=== PATIENT | male | born 1940 | race Caucasian/White ===

== ENCOUNTER 2018-01-15 12:03 | Emergency (ER) | payer MEDICARE ==
[2018-01-15 12:40] VITALS: RESP 20; TEMP 98.1
[2018-01-15 13:14] LABS: Basophils % (A) 0 %; Eosinophils # (A) 0.1 k/uL (0-0.7); Eosinophils % (A) 1 %; HGB 14.4 gm/dL (13.0-17.5); Lymphocytes % (A) 14 %; MCH 30.8 pg (25.0-35.0); MCHC 32.8 g/dL (31.0-37.0); MCV 94.1 fL (80.0-100.0); Monocytes # (A) 0.4 k/uL (0-1.0); Monocytes % (A) 5 %; Neutrophils # (A) 5.8 k/uL (1.3-7.7); Neutrophils % (A) 79 %; Platelet Count 254 k/uL (150-450); RBC 4.68 m/uL (4.30-5.90); RDW 13.9 % (11.5-15.5); WBC 7.3 k/uL (3.8-10.6)
[2018-01-15 13:26] LABS: ALT 23 U/L (21-72); AST 19 U/L (17-59); Albumin 4.2 g/dL (3.5-5.0); Alkaline Phosphatase 106 U/L (38-126); Anion Gap 14 mmol/L; Blood Urea Nitrogen 17 mg/dL (9-20); Calcium 9.5 mg/dL (8.4-10.2); Carbon Dioxide 25 mmol/L (22-30); Chloride 101 mmol/L (98-107); Glucose 250 mg/dL (74-99); Potassium 5.1 mmol/L (3.5-5.1); Sodium 140 mmol/L (137-145); Total Bilirubin 0.3 mg/dL (0.2-1.3); Total Protein 7.6 g/dL (6.3-8.2)
[2018-01-15] MEDS ORDERED: DIAZEPAM 2 MG TAB PO STA ×3 (14:05→15:56)
--- NOTE | 2018-01-15 14:10 | ED ---
General Adult HPI - General Chief complaint: Anxiety Stated complaint: Anxiety, Diff Breathing Time Seen by Provider: 01/15/18 13:54 Source: patient Mode of arrival: ambulatory Limitations: no limitations - History of Present Illness Initial comments: 77 year old male presenting with a chief complaint of anxiety. Patient states is a history of getting anxiety secondary to multiple medications. He's been taking Tylenol 3 for pain for the past 2 weeks without any issue. He states this morning at 5:30 to Pill and is secondary At 9:30. He states shortly after that he began to feel very anxious and was able to stop moving and was having shortness of breath. He states this happened with narcotic pain medications in the past. He denies any chest pain. He does state he has been noncompliant with his levothyroxine secondary to diarrhea. States has been 2 weeks since he is taking a thyroid medication is not had his levels checked. Any fevers or chills. Denies any antipsychotic medications or changes to other medication dosages. Eyes any drug use. - Related Data Home Medications Medication Instructions Recorded Confirmed Acetaminophen-Codeine 300-30mg 0.5 tab PO DAILY PRN 07/28/15 01/15/18 [Tylenol w/codeine #3] Glimepiride [Amaryl] 8 mg PO AC-BRKFST 07/28/15 01/15/18 Levothyroxine Sodium [Synthroid] 25 mcg PO DAILY 07/28/15 01/15/18 Lisinopril [Prinivil] 10 mg PO DAILY 07/28/15 01/15/18 Metoprolol Tartrate [Lopressor] 50 mg PO DAILY 07/28/15 01/15/18 Zolpidem [Ambien] 10 mg PO HS PRN 07/28/15 01/15/18 Ergocalciferol [Vitamin D2 50,000 unit PO Q30D 07/29/15 01/15/18 (DRISDOL)] busPIRone HCL 15 mg PO TID PRN 06/06/17 01/15/18 Nitroglycerin Sl Tabs [Nitrostat] 0.4 mg SUBLINGUAL Q5M PRN 01/15/18 01/15/18 Allergies Allergy/AdvReac Type Severity Reaction Status Date / Time famotidine [From Pepcid] Allergy Rapid Verified 01/15/18 13:39 Heart Rate; Dyskinesia Iodinated Contrast- Oral and Allergy Unknown Verified 01/15/18 13:39 IV Dye [Iodinated Contrast Media - IV Dye] Iodine and Iodide Containing Allergy Unknown Verified 01/15/18 13:39 Produc oxycodone HCl [From Percocet] Allergy Unknown Verified 01/15/18 13:39 pravastatin sodium Allergy Unknown Verified 01/15/18 13:39 [From Pravachol] simvastatin [From Zocor] Allergy Unknown Verified 01/15/18 13:39 tramadol HCl [From Ultram] Allergy Unknown Verified 01/15/18 13:39 cefdinir [From Omnicef] AdvReac ANXIETY Verified 01/15/18 13:39 hydrocodone AdvReac AGITATION Verified 01/15/18 13:39 hydrocodone bitartrate AdvReac AGITATION Verified 01/15/18 13:39 [From Vicodin] levofloxacin [From Levaquin] AdvReac Nausea & Verified 01/15/18 13:39 Vomiting & Diarrhea Review of Systems ROS Statement: Those systems with pertinent positive or pertinent negative responses have been documented in the HPI. Review of Systems Constitutional: Denies fever, chills Eyes: Denies change in vision, Denies pain Ears, nose, mouth, throat: Denies headaches, Denies sore throat Cardiovascular: Denies chest pain. Denies palpitations Respiratory: Denies shortness of breath, Denies cough Gastrointestinal: Denies abdominal pain. Denies nausea, vomiting, diarrhea. Genitourinary: Denies hematuria, Denies infections Musculoskeletal: Denies pain, Denies swelling Integumentary: Denies rash Neurological: Denies headache, focal weakness, focal numbness Psychiatric: Admits to anxiety, Denies depression Hematologic/Lymphatic: Denies easy bleeding or bruising ROS Other: All systems not noted in ROS Statement are negative. Past Medical History Past Medical History: Diabetes Mellitus, Hypertension, Myocardial Infarction ([place] ), Thyroid Disorder Last Myocardial Infarction Date:: 1994 History of Any Multi-Drug Resistant Organisms: None Reported Past Surgical History: Coronary Bypass/CABG, Heart Catheterization With Stent Date of Last Stent Placement:: 1994 Past Psychological History: No Psychological Hx Reported Smoking Status: Former smoker Past Alcohol Use History: None Reported Past Drug Use History: None Reported General Exam - General Exam Comments Initial Comments: General: Awake, alert, No acute Distress HENT: Normocephalic. Atraumatic Eyes: PERRL. EOMI. No scleral icterus. No injected conjunctiva Neck: Full ROM Chest/Lungs: Clear to auscultation bilaterally. No wheezing, rhonchi, or rales Cardiac: Regular rate, rhythm. No murmurs or rubs Abdomen/GI: [Soft, nontender, nondistended. No rebound, guarding, or rigidity. Musculoskeletal: Full ROM Skin: Warm, dry, intact Neurologic: A/Ox3, no weakness, no sensory deficit, no abdnormal gait, no coordination deficit. Dyskinesia Limitations: no limitations Course Vital Signs 01/15/18 01/15/18 12:37 15:45 Temperature 98.1 F Pulse Rate 84 74 Respiratory 20 20 Rate Blood Pressure 169/82 154/91 O2 Sat by Pulse 96 95 Oximetry Medical Decision Making - Medical Decision Making 77-year-old male presenting with anxiety after taking Tylenol 3. Initial exam the patient is awake, alert, and in no acute distress. VSS. Patient is exhibiting dyskinesia. It is states this one happened after other narcotic pain medications. EKG shows shows normal sinus rhythm with a right bundle branch block. Somewhere to EKG from 06/09/2017. Patient's laboratory workup is unremarkable. He states his symptoms are improved but he still exhibiting dyskinesia. Patient was offered admission for this but declined at this time. He states he would like help with his primary care physician tomorrow possible. Patient's dyskinesia improved but did not resolve. He still declined admission. No further emergent workup indicated. The patient was given return to ED instructions. They were instructed to follow up with their primary care provider. Stable for discharge at this time. - Lab Data Result diagrams: 01/15/18 13:02 01/15/18 13:02 Lab Results 01/15/18 01/15/18 01/15/18 Range/Units 13:02 13:02 13:12 WBC 7.3 (3.8-10.6) k/uL RBC 4.68 (4.30-5.90) m/uL Hgb 14.4 (13.0-17.5) gm/dL Hct 44.0 (39.0-53.0) % MCV 94.1 (80.0-100.0) fL MCH 30.8 (25.0-35.0) pg MCHC 32.8 (31.0-37.0) g/dL RDW 13.9 (11.5-15.5) % Plt Count 254 (150-450) k/uL Neutrophils % 79 % Lymphocytes % 14 % Monocytes % 5 % Eosinophils % 1 % Basophils % 0 % Neutrophils # 5.8 (1.3-7.7) k/uL Lymphocytes # 1.0 (1.0-4.8) k/uL Monocytes # 0.4 (0-1.0) k/uL Eosinophils # 0.1 (0-0.7) k/uL Basophils # 0.0 (0-0.2) k/uL Sodium 140 (137-145) mmol/L Potassium 5.1 (3.5-5.1) mmol/L Chloride 101 (98-107) mmol/L Carbon Dioxide 25 (22-30) mmol/L Anion Gap 14 mmol/L BUN 17 (9-20) mg/dL Creatinine 0.75 (0.66-1.25) mg/dL Est GFR (CKD-EPI)AfAm >90 (>60 ml/min/1.73 sqM) Est GFR (CKD-EPI)NonAf 89 (>60 ml/min/1.73 sqM) Glucose 250 H (74-99) mg/dL Calcium 9.5 (8.4-10.2) mg/dL Total Bilirubin 0.3 (0.2-1.3) mg/dL AST 19 (17-59) U/L ALT 23 (21-72) U/L Alkaline Phosphatase 106 (38-126) U/L Troponin I (0.000-0.034) ng/mL Total Protein 7.6 (6.3-8.2) g/dL Albumin 4.2 (3.5-5.0) g/dL TSH 4.470 (0.465-4.680) mIU/L Urine Color Urine Appearance (Clear) Urine pH (5.0-8.0) Ur Specific [place] (1.001-1.035) Urine Protein (Negative) Urine Glucose (UA) (Negative) Urine Ketones (Negative) Urine Blood (Negative) Urine Nitrite (Negative) Urine Bilirubin (Negative) Urine Urobilinogen (<2.0) mg/dL Ur Leukocyte Esterase (Negative) Urine Opiates Screen (NotDetected) Ur Oxycodone Screen (NotDetected) Urine Methadone Screen (NotDetected) Ur Propoxyphene Screen (NotDetected) Ur Barbiturates Screen (NotDetected) U Tricyclic Antidepress (NotDetected) Ur Phencyclidine Scrn (NotDetected) Ur Amphetamines Screen (NotDetected) U Methamphetamines Scrn (NotDetected) U Benzodiazepines Scrn (NotDetected) Urine Cocaine Screen (NotDetected) U Marijuana (THC) Screen (NotDetected) 01/15/18 01/15/18 Range/Units 13:12 14:06 WBC (3.8-10.6) k/uL RBC (4.30-5.90) m/uL Hgb (13.0-17.5) gm/dL Hct (39.0-53.0) % MCV (80.0-100.0) fL MCH (25.0-35.0) pg MCHC (31.0-37.0) g/dL RDW (11.5-15.5) % Plt Count (150-450) k/uL Neutrophils % % Lymphocytes % % Monocytes % % Eosinophils % % Basophils % % Neutrophils # (1.3-7.7) k/uL Lymphocytes # (1.0-4.8) k/uL Monocytes # (0-1.0) k/uL Eosinophils # (0-0.7) k/uL Basophils # (0-0.2) k/uL Sodium (137-145) mmol/L Potassium (3.5-5.1) mmol/L Chloride (98-107) mmol/L Carbon Dioxide (22-30) mmol/L Anion Gap mmol/L BUN (9-20) mg/dL Creatinine (0.66-1.25) mg/dL Est GFR (CKD-EPI)AfAm (>60 ml/min/1.73 sqM) Est GFR (CKD-EPI)NonAf (>60 ml/min/1.73 sqM) Glucose (74-99) mg/dL Calcium (8.4-10.2) mg/dL Total Bilirubin (0.2-1.3) mg/dL AST (17-59) U/L ALT (21-72) U/L Alkaline Phosphatase (38-126) U/L Troponin I <0.012 (0.000-0.034) ng/mL Total Protein (6.3-8.2) g/dL Albumin (3.5-5.0) g/dL TSH (0.465-4.680) mIU/L Urine Color Light Yellow Urine Appearance Clear (Clear) Urine pH 5.5 (5.0-8.0) Ur Specific [place] 1.015 (1.001-1.035) Urine Protein Negative (Negative) Urine Glucose (UA) 3+ H (Negative) Urine Ketones Negative (Negative) Urine Blood Negative (Negative) Urine Nitrite Negative (Negative) Urine Bilirubin Negative (Negative) Urine Urobilinogen <2.0 (<2.0) mg/dL Ur Leukocyte Esterase Negative (Negative) Urine Opiates Screen Detected H (NotDetected) Ur Oxycodone Screen Not Detected (NotDetected) Urine Methadone Screen Not Detected (NotDetected) Ur Propoxyphene Screen Not Detected (NotDetected) Ur Barbiturates Screen Not Detected (NotDetected) U Tricyclic Antidepress Not Detected (NotDetected) Ur Phencyclidine Scrn Not Detected (NotDetected) Ur Amphetamines Screen Not Detected (NotDetected) U Methamphetamines Scrn Not Detected (NotDetected) U Benzodiazepines Scrn Not Detected (NotDetected) Urine Cocaine Screen Not Detected (NotDetected) U Marijuana (THC) Screen Not Detected (NotDetected) Disposition Clinical Impression: Dyskinesia Disposition: HOME SELF-CARE Condition: Good Instructions: Generalized Anxiety Disorder (ED), Muscle Spasm (ED) Additional Instructions: Return to the department if he dyskinesia worsens, you beginning of pain, or any other concerning signs. Referrals: Rodri Crespo MD [Primary Care Provider] - 1-2 days
[2018-01-15 14:17] LABS: Appearance,Urine Clear (Clear); Bilirubin,Urine Negative (Negative); Blood,Urine Negative (Negative); Color,Urine Light Yellow; Glucose,Urine (UA) 3+ (Negative); Ketones,Urine Negative (Negative); Leukocyte Esterase,Urine Negative (Negative); Nitrite,Urine Negative (Negative); PH, Urine 5.5 (5.0-8.0); Protein,Urine Negative (Negative); Specific Gravity,Urine 1.015 (1.001-1.035); Urobilinogen,Urine <2.0 mg/dL (<2.0)
[2018-01-15 14:31] LABS: Amphetamine Screen,Urine Not Detected (NotDetected); Barbiturate Screen,Urine Not Detected (NotDetected); Benzodiazepines Screen,Urine Not Detected (NotDetected); Cocaine Screen,Urine Not Detected (NotDetected); Methadone Screen, Urine Not Detected (NotDetected); Opiate Screen,Urine Detected (NotDetected); Oxycodone Screen, Urine Not Detected (NotDetected); Phencyclidine Screen,Urine Not Detected (NotDetected); Tricyclic Antidepressant,Urine Not Detected (NotDetected); Urn Cannabinoid Scrn Not Detected (NotDetected)
--- NOTE | 2018-01-15 14:44 | XR ---
EXAMINATION TYPE: XR chest 2V DATE OF EXAM: 01/15/2018 COMPARISON: 06/06/2017 TECHNIQUE: PA and lateral views submitted. HISTORY: Shortness of breath FINDINGS: The lungs are clear and there is no pneumothorax, pleural effusion, or focal pneumonia. Hyperinflat ion suggests COPD and there is postsurgical changes including epicardial lead. Atherosclerotic change aorta. Arthropathy of the shoulders and diffuse osteopenia with hypertrophic a nd degenerative change of the spine. Chronic rib deformities are noted. IMPRESSION: 1. No acute process. Correlate for COPD.
[2018-01-15 15:50] VITALS: BP 154/91; PULSE 74
== END 2018-01-15 17:34 | disposition home or self-care (01) ==
LOC: EC 12:03
DX: G24.9 Dystonia, unspecified (principal); R06.02 Shortness of breath; E11.9 Type 2 diabetes mellitus without complications; I10 Essential (primary) hypertension; I25.2 Old myocardial infarction; E07.9 Disorder of thyroid, unspecified; F41.9 Anxiety disorder, unspecified; Z87.891 Personal history of nicotine dependence; Z79.84 Long term (current) use of oral hypoglycemic drugs; Z79.899 Other long term (current) drug therapy; Z91.041 Radiographic dye allergy status; Z88.5 Allergy status to narcotic agent; Z88.6 Allergy status to analgesic agent; Z88.1 Allergy status to other antibiotic agents; Z88.8 Allergy status to other drugs, medicaments and biological substances
CPT/HCPCS: 36415; 71046; 80053; 80306; 81003; 84443; 84484; 85025; 93005; 99283

== ENCOUNTER 2018-12-09 00:30 | Inpatient (IN) | payer MEDICARE ==
[2018-12-09] MEDS ORDERED: methylPREDNISolone SOD SUCCI 125 MG/2 ML VIAL IV STA (00:53)
[2018-12-09] MEDS ORDERED: diphenhydrAMINE 50 MG/ML 1 ML VIAL IVP STA (00:53)
[2018-12-09] MEDS ORDERED: SODIUM CHLORIDE 0.9% 500 ML 500 ML IV STA (00:57)
[2018-12-09 01:06] LABS: Basophils % (A) 0 %; Eosinophils # (A) 0.1 k/uL (0-0.7); Eosinophils % (A) 1 %; HGB 14.2 gm/dL (13.0-17.5); Lymphocytes # (A) 0.8 k/uL (1.0-4.8); Lymphocytes % (A) 7 %; MCH 31.8 pg (25.0-35.0); MCHC 31.6 g/dL (31.0-37.0); MCV 100.8 fL (80.0-100.0); Macrocytosis Slight; Mean Platelet Volume 6.4; Monocytes # (A) 0.6 k/uL (0-1.0); Monocytes % (A) 5 %; Neutrophils # (A) 9.4 k/uL (1.3-7.7); Neutrophils % (A) 85 %; Platelet Count 251 k/uL (150-450); RBC 4.46 m/uL (4.30-5.90); RDW 14.1 % (11.5-15.5)
[2018-12-09 01:22] LABS: ALT 27 U/L (21-72); AST 21 U/L (17-59); Albumin 4.2 g/dL (3.5-5.0); Alkaline Phosphatase 97 U/L (38-126); Anion Gap 11 mmol/L; Blood Urea Nitrogen 15 mg/dL (9-20); Calcium 9.5 mg/dL (8.4-10.2); Carbon Dioxide 24 mmol/L (22-30); Chloride 107 mmol/L (98-107); Glucose 343 mg/dL (74-99); Magnesium 1.5 mg/dL (1.6-2.3); Potassium 5.3 mmol/L (3.5-5.1); Sodium 142 mmol/L (137-145); Total Bilirubin 0.6 mg/dL (0.2-1.3); Total Protein 7.4 g/dL (6.3-8.2)
--- NOTE | 2018-12-09 01:26 | XR ---
EXAM: XR Chest, 2 Views CLINICAL HISTORY: ITS.REASON XR Reason: Chest Pain TECHNIQUE: Frontal and lateral views of the chest. COMPARISON: 01/15/18. FINDINGS: Lungs: Bilateral perihilar/infrahilar opacities. Pleural space: Trace pleural effusions not excluded. No pneumothorax. Heart: Mildly enlarged cardiomediastinal silhouette. Mediastinum: See above. Bones/joints: No acute fracture. IMPRESSION: 1. Bilateral perihilar/infrahilar opacities. Correlate clinically for infection or edema. 2. Trace pleural effusions not excluded. 3. Mildly enlarged cardiomediastinal silhouette.
[2018-12-09] MEDS ORDERED: LORazepam 2 MG/ML INJ IV STA (01:27)
[2018-12-09 01:28] LABS: INR 1.1 (<1.2); Partial Thromboplastin Time 23.2 sec (22.0-30.0); Prothrombin Time 11.2 sec (9.0-12.0)
--- NOTE | 2018-12-09 01:52 | ED ---
Chest Pain HPI - General Source: family Mode of arrival: wheelchair Limitations: no limitations <Sheela Burks - Last Filed: 12/09/18 02:27> <Ruchi Cadet - Last Filed: 12/09/18 02:47> - General Chief Complaint: Chest Pain Stated Complaint: chest pain Time Seen by Provider: 12/09/18 00:53 - History of Present Illness Initial Comments: 78-year-old male patient presents to the emergency department today for evaluation of chest pain, shortness of breath, and anxiety. Patient believes symptoms are related to an ALLERGIC reaction from tramadol. Patient took 25 mg of tramadol at 2 PM, 6 PM, and 8 PM. States shortly after the last dose he started becoming very anxious. States he is having pain across his entire chest. States that he was having some shortness of breath when symptoms first started. States he feels very anxious and restless. Denies any pain into his back. States that he is having some sweats with this. Patient states that he has had ALLERGIC reactions to the medication a past and feels very similar. Patient does also have a history of CABG and myocardial infarction. States that he is nauseated but has not vomited. Patient denies any recent rash, fever , chills, abdominal pain, diarrhea, constipation, back pain, numbness, tingling , dizziness, weakness, hematuria, dysuria, urinary urgency, urinary frequency, headache, visual changes, or any other complaints. (Sheela Burks) - Related Data Home Medications Medication Instructions Recorded Confirmed Acetaminophen-Codeine 300-30mg 0.5 tab PO DAILY PRN 07/28/15 12/09/18 [Tylenol w/codeine #3] Glimepiride [Amaryl] 8 mg PO AC-BRKFST 07/28/15 12/09/18 Levothyroxine Sodium [Synthroid] 25 mcg PO DAILY 07/28/15 12/09/18 Lisinopril [Prinivil] 10 mg PO DAILY 07/28/15 12/09/18 Metoprolol Tartrate [Lopressor] 50 mg PO DAILY 07/28/15 12/09/18 Zolpidem [Ambien] 10 mg PO HS PRN 07/28/15 12/09/18 Ergocalciferol [Vitamin D2 50,000 unit PO Q30D 07/29/15 12/09/18 (DRISDOL)] busPIRone HCL 15 mg PO TID PRN 06/06/17 12/09/18 Nitroglycerin Sl Tabs [Nitrostat] 0.4 mg SUBLINGUAL Q5M PRN 01/15/18 12/09/18 Allergies Allergy/AdvReac Type Severity Reaction Status Date / Time famotidine [From Pepcid] Allergy Rapid Verified 12/09/18 00:38 Heart Rate; Dyskinesia Iodinated Contrast- Oral and Allergy Unknown Verified 12/09/18 00:38 IV Dye [Iodinated Contrast Media - IV Dye] Iodine and Iodide Containing Allergy Unknown Verified 12/09/18 00:38 Produc oxycodone HCl [From Percocet] Allergy Unknown Verified 12/09/18 00:38 pravastatin sodium Allergy Unknown Verified 12/09/18 00:38 [From Pravachol] simvastatin [From Zocor] Allergy Unknown Verified 12/09/18 00:38 tramadol HCl [From Ultram] Allergy Unknown Verified 12/09/18 00:38 cefdinir [From Omnicef] AdvReac ANXIETY Verified 12/09/18 00:38 hydrocodone AdvReac AGITATION Verified 12/09/18 00:38 hydrocodone bitartrate AdvReac AGITATION Verified 12/09/18 00:38 [From Vicodin] levofloxacin [From Levaquin] AdvReac Nausea & Verified 12/09/18 00:38 Vomiting & Diarrhea Review of Systems ROS Other: All systems not noted in ROS Statement are negative. <Sheela Burks - Last Filed: 12/09/18 02:27> ROS Other: All systems not noted in ROS Statement are negative. <Ruchi Cadet - Last Filed: 12/09/18 02:47> ROS Statement: Those systems with pertinent positive or pertinent negative responses have been documented in the HPI. EKG Findings - EKG Comments: EKG Findings:: EKG obtained at 0102 shows normal sinus rhythm with a left axis deviation and right bundle branch block. Ventricular rate is 98, AR interval 156, QRS duration 132, QT 374, QTC 477. Did compare to EKG obtained in December 2017, changes appear chronic. <Sheela Burks - Last Filed: 12/09/18 02:27> Past Medical History Past Medical History: Diabetes Mellitus, Hypertension, Myocardial Infarction ([place] ), Thyroid Disorder Last Myocardial Infarction Date:: 1994 History of Any Multi-Drug Resistant Organisms: None Reported Past Surgical History: Coronary Bypass/CABG, Heart Catheterization With Stent Date of Last Stent Placement:: 1994 Past Psychological History: No Psychological Hx Reported Smoking Status: Former smoker Past Alcohol Use History: None Reported Past Drug Use History: None Reported <Sheela Burks M - Last Filed: 12/09/18 02:27> General Exam Limitations: no limitations General appearance: alert, in no apparent distress, other (This is a well- developed, well-nourished adult male patient in mild distress related to pain. Patient is quite anxious. Vital signs upon presentation are temperature 97.8F , pulse 95, respirations 24, blood pressure 152/89, pulse ox 95% on room air.) Eye exam: Present: normal appearance, PERRL, EOMI. Absent: scleral icterus, conjunctival injection, periorbital swelling ENT exam: Present: normal exam, normal oropharynx, mucous membranes moist Respiratory exam: Present: normal lung sounds bilaterally. Absent: respiratory distress, wheezes, rales, rhonchi, stridor Cardiovascular Exam: Present: regular rate, normal rhythm, normal heart sounds. Absent: systolic murmur, diastolic murmur, rubs, gallop, clicks GI/Abdominal exam: Present: soft, normal bowel sounds. Absent: distended, tenderness, guarding, rebound, rigid Neurological exam: Present: alert, oriented X3, CN II-XII intact Psychiatric exam: Present: normal affect, normal mood Skin exam: Present: warm, dry, intact, normal color. Absent: rash <Sheela Burks M - Last Filed: 12/09/18 02:27> Vital Signs 12/09/18 12/09/18 12/09/18 00:35 01:20 02:00 Temperature 97.8 F Pulse Rate 95 91 90 Respiratory 24 22 20 Rate Blood Pressure 152/89 152/92 166/100 O2 Sat by Pulse 95 97 96 Oximetry Chest Pain [facility] <Sheela Burks M - Last Filed: 12/09/18 02:27> <Ruchi Cadet P - Last Filed: 12/09/18 02:47> - [facility] RADIOLOGY: Two-view x-ray of the chest is obtained. Report was reviewed in its entirety. Impression by Dr. Alamo shows bilateral perihilar/infrahilar opacities. Correlate clinically for infection or edema. Trace pleural effusions on excluded. Mildly enlarged cardiomediastinal silhouette. MDM: 78-year-old male patient presented to the emergency department today for complaints of chest pain and shortness of breath as well as anxiety after taking tramadol this evening. Patient states he is ALLERGIC to tramadol and has had similar reaction to this in the past. He was given IV Solu-Medrol and Benadryl which did improve symptoms somewhat. He is also given 0.5 mg of Ativan. He still reports some mild chest discomfort. Labs reviewed and did reveal elevated troponin at 0.046. Chest x-ray showed possible bilateral pleural effusions. Patient does have history of CAD with CABG. A given history , symptoms, lab findings will admit for serial troponins. We'll start heparin. Dr. Crespo is accepting. (Sheela Burks) I personally saw and examined the patient. I reviewed and agree with the mid- level provider findings including all diagnostic interpretations and treatment plans as written. Patient care was discussed with patient's primary care physician Dr. Crespo who accepts the admission with a consult to cardiology. ( Ruchi Cadet) Disposition Decision to Admit Reason: Admit from EC Decision Date: 12/09/18 Decision Time: 02:28 <Sheela Burks - Last Filed: 12/09/18 02:27> <Ruchi Cadet - Last Filed: 12/09/18 02:47> Clinical Impression: Unstable angina, Elevated troponin Disposition: ADMITTED IP TO THIS [facility] Condition: Serious Referrals: Rodri Crespo MD [Primary Care Provider] - 1-2 days
[2018-12-09 01:57] LABS: Creatine Kinase MB 1.7 ng/mL (0.0-2.4)
[2018-12-09 01:59] LABS: Troponin I 0.046 ng/mL (0.000-0.034)
[2018-12-09] MEDS ORDERED: Magnesium Replacement Protocol 1 EACH MISC MISCELLANE PRN (02:02)
[2018-12-09] MEDS: MAGNESIUM SULFATE-D5W PMX 1 GM in DEXTROSE/WATER 1 100ML.BAG IVPB SCH ×2 (02:09→03:05)
[2018-12-09] MEDS ORDERED: NITROGLYCERIN SL TABS 0.4 MG TAB SUBLINGUAL PRN ×3 (02:24→12:49)
[2018-12-09] MEDS ORDERED: HEPARIN SODIUM,PORCINE 5,000 UNIT/ML 1 ML VIAL IV ONE ×2 (02:24→10:10)
[2018-12-09] MEDS ORDERED: ENALAPRILAT 1.25 MG/ML 1 ML VIAL IVP STA (02:27)
[2018-12-09] MEDS: HEPARIN SOD,PORK IN 0.45% NACL 25,000 UNIT in 0.45% NACL 1 250ML.BAG IV SCH ×2 (02:53→04:23)
[2018-12-09 04:07] VITALS: BMI 23.0
[2018-12-09] MEDS: SODIUM CHLORIDE 0.9% 1,000 ML IV SCH ×2 (04:23)
[2018-12-09 05:33] LABS: Glucose,Whole Blood 264 mg/dL (75-99)
[2018-12-09 07:26] LABS: Creatine Kinase MB 19.3 ng/mL (0.0-2.4)
[2018-12-09 07:27] LABS: Troponin I 2.13 ng/mL (0.000-0.034)
--- NOTE | 2018-12-09 08:54 | P.CRDCN ---
History of Present Illness Consult date: 12/09/18 Requesting physician: Rodri Crespo Consult reason: chest pain Chief complaint: Chest pain History of present illness: This is a 78-year-old gentleman with history of coronary artery disease and prior stent placements, he also underwent coronary artery bypass grafting surgery, diabetes, hypertension, hyperlipidemia, hypothyroidism, anxiety. The information was taken from the medical record and from the patient , patient is quite nervous and agitated this morning, it also appears that he may have an element of dementia. According to the patient, he presented to the hospital with symptoms of severe chest pain with associated shortness of breath and anxiety. He states that he had been given tramadol at home and felt that he had an ALLERGIC reaction. He describes his discomfort as pressure across his entire chest with inability to breathe, he was quite diaphoretic. According to the patient, he states that he follows with Dr. Arnie Hoffmann in the office, he actually states that he saw him recently. Upon calling the office, it appears that the patient has not been back to the office since 2009. We are waiting for his to arrive to get some more information. His initial EKG on presentation here showed a normal sinus rhythm with a right bundle branch block pattern and nonspecific ST-T wave changes. Chest x-ray shows bilateral. Hilar and infrahilar [place] cities, trace of pleural effusions. Blood pressure this morning 126/80 with a heart rate of 80. 99% on 2 L of oxygen. White blood cell count 11.0, hemoglobin 14.2, platelet count 251. Sodium 142, potassium 5.3, BUN 15 and creatinine 0.8. Initial troponin on presentation here 0.046, subsequent troponin 2.13. Urine screen positive for opiates. At the time of my examination this morning, he is sitting up in his chair at bedside, quite anxious and agitated. I did explain to the patient that it appears he has had a non-Q-wave TN and may need to undergo cardiac catheterization. At this point in time he is refusing to have that done. Past Medical History Past Medical History: Coronary Artery Disease (CAD), Diabetes Mellitus, Hypertension, Myocardial Infarction (TN), Osteoarthritis (OA), Thyroid Disorder Last Myocardial Infarction Date:: 1994 History of Any Multi-Drug Resistant Organisms: None Reported Past Surgical History: Coronary Bypass/CABG, Heart Catheterization With Stent, Orthopedic Surgery Additional Past Surgical History / Comment(s): Bilateral hip replacement, CABG 25 years ago Past Anesthesia/Blood Transfusion Reactions: No Reported Reaction Date of Last Stent Placement:: 1994 Past Psychological History: No Psychological Hx Reported Smoking Status: Never smoker Past Alcohol Use History: None Reported Additional Past Alcohol Use History / Comment(s): Patient was a smoker one pack per day for 45 years and quit in 1993. No marijuana or illicit drug use. He lives at home with his . There are 2 adult children in the home ages 42 and 50. There is also a cat in the home. Patient denies any extensive travel but does have a second home in [place] and is there on a regular basis. He denies any service. Past Drug Use History: None Reported - Past Family History Mother Additional Family Medical History / Comment(s): Mom from brain cancer. Father History Unknown: Yes Additional Family Medical History / Comment(s): Father after a fall at correction. Medications and Allergies Home Medications Medication Instructions Recorded Confirmed Type Glimepiride [Amaryl] 8 mg PO [id number]-BRKFST 07/28/15 12/09/18 History Levothyroxine Sodium [Synthroid] 25 mcg PO DAILY 07/28/15 12/09/18 History Lisinopril [Prinivil] 10 mg PO DAILY 07/28/15 12/09/18 History Metoprolol Tartrate [Lopressor] 50 mg PO DAILY 07/28/15 12/09/18 History Zolpidem [Ambien] 10 mg PO HS PRN 07/28/15 12/09/18 History Ergocalciferol [Vitamin D2 50,000 unit PO Q30D 07/29/15 12/09/18 History (DRISDOL)] busPIRone HCL 15 mg PO TID PRN 06/06/17 12/09/18 History Nitroglycerin Sl Tabs [Nitrostat] 0.4 mg SUBLINGUAL Q5M PRN 01/15/18 12/09/18 History Ibuprofen [Motrin] 800 mg PO QID 12/09/18 12/09/18 History Allergies Allergy/AdvReac Type Severity Reaction Status Date / Time famotidine [From Pepcid] Allergy Rapid Verified 12/09/18 08:27 Heart Rate; Dyskinesia Iodinated Contrast- Oral and Allergy Unknown Verified 12/09/18 08:27 IV Dye [Iodinated Contrast Media - IV Dye] Iodine and Iodide Containing Allergy Unknown Verified 12/09/18 08:27 Produc oxycodone HCl [From Percocet] Allergy Unknown Verified 12/09/18 08:27 pravastatin sodium Allergy Unknown Verified 12/09/18 08:27 [From Pravachol] simvastatin [From Zocor] Allergy Unknown Verified 12/09/18 08:27 tramadol HCl [From Ultram] Allergy Unknown Verified 12/09/18 08:27 cefdinir [From Omnicef] AdvReac ANXIETY Verified 12/09/18 08:27 hydrocodone AdvReac AGITATION Verified 12/09/18 08:27 hydrocodone bitartrate AdvReac AGITATION Verified 12/09/18 08:27 [From Vicodin] levofloxacin [From Levaquin] AdvReac Nausea & Verified 12/09/18 08:27 Vomiting & Diarrhea Physical Exam Vitals: Vital Signs Temp Pulse Pulse Resp BP BP Pulse Ox 12/09/18 08:00 98.7 F 85 20 126/89 99 12/09/18 04:00 97.5 F L 109 H 18 152/81 94 L 12/09/18 03:00 86 20 150/95 99 12/09/18 02:00 90 20 166/100 96 12/09/18 01:20 91 22 152/92 97 12/09/18 00:35 97.8 F 95 24 152/89 95 Intake and Output 12/08/18 12/09/18 12/09/18 22:59 06:59 14:59 Intake Total 230 Balance 230 Intake: Oral 230 Other: Voiding Method Toilet Urinal # Voids 1 1 Weight 64.8 kg PHYSICAL EXAMINATION: GENERAL: 78-year-old gentleman in no acute distress at the time of my examination, appears very anxious and agitated. HEENT: Head is atraumatic, normocephalic. Pupils equal, round. Sclera anicteric. Conjunctiva are clear. Mucous membranes of the mouth are moist. Neck is supple. There is no elevated jugular venous pressure. No carotid bruit is heard. HEART EXAMINATION: Heart S1 S2 1 systolic murmur is heard. CHEST EXAMINATION: Reveal fine crackles to bilateral bases. ABDOMEN: Soft, nontender. Bowel sounds are heard. No organomegaly noted. EXTREMITIES: 2+ peripheral pulses with no evidence of peripheral edema and no calf tenderness noted. NEUROLOGIC patient is awake, alert and oriented 2 . . Results 12/09/18 00:45 12/09/18 00:45 Cardiac Enzymes 12/09/18 12/09/18 12/09/18 Range/Units 00:45 00:45 06:38 AST 21 (17-59) U/L CK-MB (CK-2) 1.7 19.3 H (0.0-2.4) ng/mL Troponin I 0.046 H* 2.130 H* (0.000-0.034) ng/mL Coagulation 12/09/18 Range/Units 00:45 PT 11.2 (9.0-12.0) sec APTT 23.2 (22.0-30.0) sec CBC 12/09/18 Range/Units 00:45 WBC 11.0 H (3.8-10.6) k/uL RBC 4.46 (4.30-5.90) m/uL Hgb 14.2 (13.0-17.5) gm/dL Hct 45.0 (39.0-53.0) % Plt Count 251 (150-450) k/uL Comprehensive Metabolic Panel 12/09/18 Range/Units 00:45 Sodium 142 (137-145) mmol/L Potassium 5.3 H (3.5-5.1) mmol/L Chloride 107 (98-107) mmol/L Carbon Dioxide 24 (22-30) mmol/L BUN 15 (9-20) mg/dL Creatinine 0.88 (0.66-1.25) mg/dL Glucose 343 H (74-99) mg/dL Calcium 9.5 (8.4-10.2) mg/dL AST 21 (17-59) U/L ALT 27 (21-72) U/L Alkaline Phosphatase 97 (38-126) U/L Total Protein 7.4 (6.3-8.2) g/dL Albumin 4.2 (3.5-5.0) g/dL Current Medications Generic Name Dose Route Start Last Admin Trade Name Freq PRN Reason Stop Dose Admin Aspirin 325 mg 12/10/18 09:00 Aspirin PO DAILY [facility] Atorvastatin Calcium 80 mg 12/09/18 21:00 Lipitor PO HS NICOLAS Heparin Sodium/Sodium Chloride 250 mls @ 7.72 mls/hr 12/09/18 02:30 12/09/18 04:23 25,000 unit/ Sodium Chloride IV Not Given .Q24H NICOLAS Protocol 12 UNITS/KG/HR Sodium Chloride 1,000 mls @ 20 mls/hr 12/09/18 02:30 12/09/18 04:23 Saline 0.9% IV 20 mls/hr .Q24H NICOLAS Administration Miscellaneous Information 1 each 12/09/18 02:02 Magnesium Per Protocol MISCELLANE DAILY PRN Per Protocol Protocol Nitroglycerin 0.4 mg 12/09/18 02:24 Nitrostat SUBLINGUAL Q5M PRN Chest Pain Intake and Output 12/08/18 12/09/18 12/09/18 22:59 06:59 14:59 Intake Total 230 Balance 230 Intake: Oral 230 Other: Voiding Method Toilet Urinal # Voids 1 1 Weight 64.8 kg 12/09/18 00:45 12/09/18 00:45 EKG Interpretations (text) EKG shows a normal sinus rhythm with a right bundle branch block pattern and nonspecific ST-T wave changes. Assessment and Plan Plan: Assessment and plan #1 symptoms of severe midsternal chest discomfort with associated shortness of breath and diaphoresis, troponins 0.046 and 2.1, suggesting acute coronary syndrome. EKG shows a normal sinus rhythm with right bundle branch block pattern and nonspecific ST-T wave changes. #2 hypertension #3 diabetes #4 hyperlipidemia #5 coronary artery disease with prior stent placement and bypass surgery #6 Anxiety Plan We will repeat a morning EKG. Obtain an echocardiogram with Doppler study. Continue aspirin, Lipitor we will add to his medication regime. Continue IV heparin. We will resume the patient's beta osman and PAUL inhibitor. Patient has been advised that he may need to undergo cardiac catheterization. At this point in time he refuses to have any procedures performed. We will wait till his arrives and speak with them again, we will also notify Dr. REAL Hoffmann and further recommendations will be made. DNP note has been reviewed, I agree with a documented findings and plan of care. Patient was seen and examined.
[2018-12-09] MEDS: LISINOPRIL 10 MG TAB PO SCH (09:52)
[2018-12-09] MEDS: METOPROLOL TARTRATE 50 MG TAB PO SCH (09:52)
[2018-12-09] MEDS ORDERED: HEPARIN SODIUM,PORCINE 5,000 UNIT/ML 1 ML VIAL IV PRN (10:13)
[2018-12-09 11:38] LABS: Glucose,Whole Blood 266 mg/dL (75-99)
[2018-12-09] MEDS ORDERED: ASPIRIN 325 MG TAB PO STA (12:18)
[2018-12-09] MEDS ORDERED: ALPRAZolam 0.25 MG TAB PO PRN (12:18)
[2018-12-09] MEDS ORDERED: SODIUM CHLORIDE 0.9% 1,000 ML in EMPTY BAG 1 BAG IV ONE (12:18)
[2018-12-09] MEDS ORDERED: ALPRAZolam 0.5 MG TAB PO PRN (12:18)
[2018-12-09] MEDS ORDERED: ATORVASTATIN 80 MG TAB PO STA (12:18)
[2018-12-09 12:49] LABS: Creatine Kinase MB 44.1 ng/mL (0.0-2.4)
[2018-12-09] MEDS ORDERED: busPIRone HCl 5 MG TAB PO PRN (12:49)
[2018-12-09 12:56] LABS: Troponin I 6.25 ng/mL (0.000-0.034)
--- NOTE | 2018-12-09 14:04 | ECHOF ---
Referral Reason:assess lvf MEASUREMENTS -------- HEIGHT: 167.6 cm WEIGHT: 64.4 kg BP: 126/89 RVIDd: 2.5 cm (< 3.3) IVSd: 1.0 cm (0.6 - 1.1) LVIDd: 4.3 cm (3.9 - 5.3) LVPWd: 1.0 cm (0.6 - 1.1) IVSs: 1.4 cm LVIDs: 3.7 cm LVPWs: 1.1 cm LAESV Index (A-L): 25.24 ml/m Ao Diam: 3.0 cm (2.0 - 3.7) AV Cusp: 1.1 cm (1.5 - 2.6) LA Diam: 3.4 cm (2.7 - 3.8) EPSS: 0.5 cm MV E Norman: 0.92 m/s MV DecT: 205 ms MV A Norman: 0.44 m/s MV E/A Ratio: 2.10 RAP: 15.00 mmHg RVSP: 64.35 mmHg MV EF SLOPE: 141.70 mm/s (70 - 150) MV EXCURSION: 1.72 cm (> 18.000) FINDINGS -------- Sinus rhythm. This was a technically difficult study with suboptimal views. The left ventricular size is normal. There is borderline concentric left ventricular hypertrophy. Overall left ventricular systolic function is severely impaired with, an EF between 25 - 30 %. Nor mal funtion of the mid and basal septum. All other luciano are hypokinetic. The right ventricle is normal in size and function. Normal LA size by volume 22+/-6 ml/m2. The right atrium is normal in size. 3 ml of Lumason was utilized for enhancement of images. There is mild to moderate aortic valve sclerosis. There is no evidence of aortic regurgitation. T here is no evidence of aortic stenosis. The mitral valve leaflets are mildly thickened. Mild mitral annular calcification present. Mild m itral regurgitation is present. [id number] tricuspid regurgitation present. There is moderate pulmonary hypertension. The r ight ventricular systolic pressure, as measured by Doppler, is 64.35mmHg. The pulmonic valve was not well visualized. Possible mural thrombus in left ventricular apex. The aortic root size is normal. The inferior vena cava is dilated with no significant inspiratory collapse which is consistent estima taylor right atrial pressure of >20 mmHg. There is no pericardial effusion. CONCLUSIONS -------- 1. Sinus rhythm. 2. This was a technically difficult study with suboptimal views. 3. The left ventricular size is normal. 4. There is borderline concentric left ventricular hypertrophy. 5. Overall left ventricular systolic function is severely impaired with, an EF between 25 - 30 %. 6. Normal funtion of the mid and basal septum. All other luciano are hypokinetic. 7. Normal LA size by volume 22+/-6 ml/m2. 8. 3 ml of Lumason was utilized for enhancement of images. 9. There is mild to moderate aortic valve sclerosis. 10. The mitral valve leaflets are mildly thickened. 11. Mild mitral annular calcification present. 12. Mild mitral regurgitation is present. 13. [id number] tricuspid regurgitation present. 14. There is moderate pulmonary hypertension. 15. The right ventricular systolic pressure, as measured by Doppler, is 64.35mmHg. 16. The pulmonic valve was not well visualized. 17. Possible mural thrombus in left ventricular apex. 18. The aortic root size is normal. 19. The inferior vena cava is dilated with no significant inspiratory collapse which is consistent es timated right atrial pressure of >20 mmHg. 20. There is no pericardial effusion. FICTION AND NONFICTION AUTHOR: Daniele Em RDCS
[2018-12-09 17:31] LABS: Glucose,Whole Blood 283 mg/dL (75-99)
[2018-12-09] MEDS: INSULIN ASPART (NovoLOG) 100 UNIT/ML VIAL SQ SCH (17:40)
--- NOTE | 2018-12-09 19:57 | HP ---
HISTORY AND PHYSICAL CHIEF COMPLAINT: Chest pain and elevated troponin. HISTORY OF PRESENT ILLNESS: This is another admission for this 78-year-old white male who is extremely noncompliant diabetic and never takes his insulin appropriately. He always is running high blood sugars. He stated that he had an "allergic reaction" to pain medication and then developed chest pain. He stated he was sure it was not his heart, but it felt like "his heart attack." He came to the emergency room, where he did have an elevated troponin. REVIEW OF SYSTEMS: He has had no syncope, neurologic problems, CVAs, TIAs, change in vision or hearing, cough, hemoptysis, sputum production, orthopnea, PND, palpitations, abdominal pain, nausea, vomiting, hematemesis, melena, hematochezia, jaundice, hematuria, frequency, urgency, renal failure, etc. Past medical history, family history, personal and social histories are difficult to obtain because of extremely poor historian and always in denial. He says he is ALLERGIC TO BUSPAR, CEPHALOSPORINS, QUINOLONES, PEPCID, PERCOCET, PRAVASTATIN, ULTRAM, ZOCOR, AND IODINE. Current medications include Motrin 800 q.i.d. p.r.n., Nitrostat p.r.n., levothyroxine, vitamin D, glimepiride, metoprolol, lisinopril, and Ambien. The remainder of his history is unremarkable. He used to smoke but has quit. He does not drink alcohol. PHYSICAL EXAM: Blood pressure 132/80 with a pulse of 84 and regular, respirations of 18, temp is 97.9. In general, he appeared to be slender and somewhat tremulous. He does have choreoathetoid movements of these are old. Head, ears, eyes, nose, mouth, and throat were normal. Neck veins are not distended. Carotids normal. The chest was clear, but there are no rubs. Cardiac exam demonstrated sinus tachycardia with no murmurs or extra sounds. He had a sternotomy scar from his prior CABG. Abdomen is soft, nontender without visceromegaly masses. Bowel sounds are present. Extremities are normal. Neurologically he is intact. IMPRESSION: 1. Chest pain. 2. Elevated troponin. 3. Probable acute myocardial infarction. 4. Uncontrolled diabetes mellitus due to noncompliance. 5. Previous coronary artery disease with CABG. 6. Poorly-controlled diabetes mellitus. PLAN: 1. Bed rest. 2. IV fluids. 3. Serial EKGs and enzymes. 4. Cardiology consult. JB / MARÍA: [id number] /
[2018-12-09] MEDS: ATORVASTATIN 80 MG TAB PO SCH (20:24)
[2018-12-09] MEDS: ZOLPIDEM 10 MG TAB PO PRN (20:24)
[2018-12-09 21:08] LABS: Glucose,Whole Blood 180 mg/dL (75-99)
[2018-12-09] MEDS: INSULIN DETEMIR (LEVEMIR) 100 UNIT/ML SYR SQ SCH (21:20)
[2018-12-09 22:14] LABS: Hemoglobin A1C 9.2 % (4.0-6.0)
[2018-12-10 04:07] LABS: Magnesium 2.1 mg/dL (1.6-2.3)
[2018-12-10] MEDS: METOPROLOL TARTRATE 50 MG TAB PO SCH (06:23)
[2018-12-10] MEDS: LISINOPRIL 10 MG TAB PO SCH (06:23)
[2018-12-10] MEDS: LEVOTHYROXINE 25 MCG TAB PO SCH (06:23)
[2018-12-10 06:27] LABS: Glucose,Whole Blood 96 mg/dL (75-99)
[2018-12-10] MEDS: INSULIN ASPART (NovoLOG) 100 UNIT/ML VIAL SQ SCH ×3 (06:27→18:22)
[2018-12-10] MEDS ORDERED: ASPIRIN 325 MG TAB PO SCH (09:00)
[2018-12-10 11:15] LABS: Glucose,Whole Blood 108 mg/dL (75-99)
[2018-12-10] MEDS ORDERED: LIDOCAINE 1% INJ 10MG/ML (20 ML MDV) ONE (12:12)
[2018-12-10] MEDS ORDERED: SODIUM CHLORIDE 0.9% 500 ML 500 ML IV ONE (12:24)
[2018-12-10] MEDS ORDERED: methylPREDNISolone SOD SUCCI 125 MG/2 ML VIAL IV ONE (12:35)
[2018-12-10] MEDS ORDERED: LIDOCAINE 1% INJ 10MG/ML (20 ML MDV) SQ ONE (12:41)
[2018-12-10] MEDS ORDERED: MIDAZOLAM 2 MG/2 ML VIAL IV ONE (12:42)
[2018-12-10] MEDS ORDERED: diphenhydrAMINE 50 MG/ML 1 ML VIAL IVP ONE (12:45)
[2018-12-10] MEDS ORDERED: IOPAMIDOL-370 100ML BTL INJ ONE ×2 (13:23)
--- NOTE | 2018-12-10 15:03 | PN ---
PROGRESS NOTE CHIEF COMPLAINT: Chest pain. HISTORY OF PRESENT ILLNESS: This gentleman is doing fairly well and he has had no further chest pain. He has agreed to the cardiac cath and he is going today. Sugars have been well controlled. PHYSICAL EXAM: Chest is clear and the cardiac exam is normal. IMPRESSION: 1. Chest pain. 2. Myocardial infarction. 3. Coronary artery disease. 4. Uncontrolled diabetes. PLAN: Cardiac cath today. MMODL / IJN: [id number] /
[2018-12-10 16:34] LABS: Glucose,Whole Blood 172 mg/dL (75-99)
--- NOTE | 2018-12-10 17:54 | P.GSCN ---
<Sol Quezada - Last Filed: 12/10/18 17:25> History of Present Illness Consult date: 12/10/18 Reason for Consult: Severe multivessel coronary artery disease status post CABG, surgical recommendations for redo CABG Requesting physician: Arlen Hoffmann History of present illness: This is a 78-year-old active gentleman who follows on an outpatient basis with Dr. Crespo. He has a previous medical history of coronary artery disease with stenting to the LAD in 1989, stenting to the RCA in 1994 after acute myocardial infarction, and coronary artery bypass graft surgery in September [address] Wetzel with saphenous vein graft to the posterior descending artery and posterolateral branchs of the right coronary artery, hypertension, hyperlipidemia, uncontrolled diabetes, hypothyroidism, previous tobacco dependence, and noncompliance with medication. Apparently he had an episode of substernal chest pain, shortness of breath, and anxiety which he attributed to an ALLERGIC reaction to his pain medication. Accompanying symptoms included nausea and diaphoresis, he denied any other symptoms. When his symptoms didn't subside he presented to [facility] emergency room for evaluation and treatment. Chest x-ray was completed demonstrating perihilar opacities. EKG demonstrated sinus rhythm with bundle branch block and nonspecific STT wave changes. Troponin was elevated and patient was ruled in for non-STEMI. He was admitted for evaluation and treatment, IV heparin was initiated, and patient was recommended to undergo heart catheterization which he initially refused. Transthoracic echocardiogram was completed which demonstrated impaired left ventricular systolic function with an EF 25-30%, mild mitral regurgitation, mild to moderate tricuspid regurgitation with moderate pulmonary hypertension, and possible left ventricular thrombus. The patient did eventually agree to heart catheterization which was completed today and which demonstrated mid RCA stenosis 100%, stenosis in the ramus 90%, mid LAD stenosis 99%, stenosis in the saphenous vein graft to the PDA 60%, and stenosis in the saphenous vein graft to the posterior lateral branch of the RCA 90%. Dr. Dixon from cardiothoracic surgery was consulted for recommendations regarding redo coronary artery bypass graft surgery. Review of Systems Review of systems was completed and was negative except as noted. Of note, review of systems was mostly obtained from the patient's as the patient was initially sleeping, the patient's wished for us not to wake the patient as he had just gotten asleep after previously being very agitated. - Cardiovascular Reports as per HPI, Reports chest pain, Reports shortness of breath - Gastrointestinal Reports nausea - Psychiatric Reports anxiety Past Medical History Past Medical History: Coronary Artery Disease (CAD), Diabetes Mellitus, Hypertension, Myocardial Infarction ([place]), Osteoarthritis (OA), Thyroid Disorder Additional Past Medical History / Comment(s): Medical noncompliance Last Myocardial Infarction Date:: 1994 History of Any Multi-Drug Resistant Organisms: None Reported Past Surgical History: Coronary Bypass/CABG, Heart Catheterization With Stent, Orthopedic Surgery Additional Past Surgical History / Comment(s): Bilateral hip replacement, CABG 25 years ago Past Anesthesia/Blood Transfusion Reactions: No Reported Reaction Date of Last Stent Placement:: 1994 Past Psychological History: No Psychological Hx Reported Smoking Status: Former smoker Past Alcohol Use History: None Reported Additional Past Alcohol Use History / Comment(s): Patient was a smoker one pack per day for 45 years and quit in 1993. No marijuana or illicit drug use. He lives at home with his . There are 2 adult children in the home ages 42 and 50. There is also a cat in the home. Patient denies any extensive travel but does have a second home in [place] and is there on a regular basis. He denies any service. Past Drug Use History: None Reported - Past Family History Mother Additional Family Medical History / Comment(s): Mom from brain cancer. Father History Unknown: Yes Additional Family Medical History / Comment(s): Father after a [facility]. Medications and Allergies Home Medications Medication Instructions Recorded Confirmed Type Glimepiride [Amaryl] 8 mg PO [id number] 07/28/15 12/09/18 History Levothyroxine Sodium [Synthroid] 25 mcg PO DAILY 07/28/15 12/09/18 History Lisinopril [Prinivil] 10 mg PO DAILY 07/28/15 12/09/18 History Metoprolol Tartrate [Lopressor] 50 mg PO DAILY 07/28/15 12/09/18 History Zolpidem [Ambien] 10 mg PO HS PRN 07/28/15 12/09/18 History Ergocalciferol [Vitamin D2 50,000 unit PO Q30D 07/29/15 12/09/18 History (DRISDOL)] busPIRone HCL 15 mg PO TID PRN 06/06/17 12/09/18 History Nitroglycerin Sl Tabs [Nitrostat] 0.4 mg SUBLINGUAL Q5M PRN 01/15/18 12/09/18 History Ibuprofen [Motrin] 800 mg PO QID 12/09/18 12/09/18 History Allergies Allergy/AdvReac Type Severity Reaction Status Date / Time famotidine [From Pepcid] Allergy Rapid Verified 12/09/18 08:27 Heart Rate; Dyskinesia Iodinated Contrast- Oral and Allergy Unknown Verified 12/09/18 08:27 IV Dye [Iodinated Contrast Media - IV Dye] Iodine and Iodide Containing Allergy Unknown Verified 12/09/18 08:27 Produc oxycodone HCl [From Percocet] Allergy Unknown Verified 12/09/18 08:27 pravastatin sodium Allergy Unknown Verified 12/09/18 08:27 [From Pravachol] simvastatin [From Zocor] Allergy Unknown Verified 12/09/18 08:27 tramadol HCl [From Ultram] Allergy Unknown Verified 12/09/18 08:27 cefdinir [From Omnicef] AdvReac ANXIETY Verified 12/09/18 08:27 hydrocodone AdvReac AGITATION Verified 12/09/18 08:27 hydrocodone bitartrate AdvReac AGITATION Verified 12/09/18 08:27 [From Vicodin] levofloxacin [From Levaquin] AdvReac Nausea & Verified 12/09/18 08:27 Vomiting & Diarrhea Surgical - Exam Vital Signs Temp Pulse Resp BP Pulse Ox 97.8 F 95 24 152/89 95 12/09/18 00:35 12/09/18 00:35 12/09/18 00:35 12/09/18 00:35 12/09/18 00:35 - General well developed, well nourished, no distress, no pain - Eyes PERRL, normal ocular movement - ENT no hearing loss - Neck no masses, no bruits, trachea midline - Respiratory Lungs sounds diminished bilaterally. Respirations even, nonlabored. Currently on 2 L nasal cannula with oxygen saturation 94%. No chest wall deformities. - Cardiovascular S1, S2 present. Regular rate and rhythm, sinus rhythm on telemetry. Palpable peripheral pulses bilaterally. No edema present. No calf pain or tenderness noted. Positive varicosities noted. - Abdomen Abdomen: soft, non tender, bowel sounds - Genitourinary Deferred - Rectum Deferred - Integumentary Well-healed anterior chest wall open heart scar no rash, no growths - Neurologic normal coordination, normal sensation - Musculoskeletal normal posture - Psychiatric oriented to time, oriented to person, oriented to place, speech is normal, memory intact Results - Labs 12/09/18 00:45 12/09/18 00:45 Abnormal Lab Results - Last 24 Hours (Table) 12/09/18 12/09/18 12/09/18 Range/Units 00:45 17:19 20:07 APTT 44.3 H (22.0-30.0) sec POC Glucose (mg/dL) 283 H (75-99) mg/dL Hemoglobin A1c 9.2 H (4.0-6.0) % 12/09/18 12/10/18 12/10/18 Range/Units 21:05 03:18 11:13 APTT 38.5 H (22.0-30.0) sec POC Glucose (mg/dL) 180 H 108 H (75-99) mg/dL Hemoglobin A1c (4.0-6.0) % 12/10/18 Range/Units 16:33 APTT (22.0-30.0) sec POC Glucose (mg/dL) 172 H (75-99) mg/dL Hemoglobin A1c (4.0-6.0) % Diabetes panel 12/09/18 12/10/18 Range/Units 00:45 03:18 Hemoglobin A1c 9.2 H (4.0-6.0) % Triglycerides 111 (<150) mg/dL HDL Cholesterol 44 (40-60) mg/dL - Imaging Chest x-ray: report reviewed, image reviewed EKG: image reviewed Additional studies: Results of echocardiogram and heart catheterization reviewed Assessment and Plan Assessment: 1. Severe multivessel coronary artery disease, status post stenting and coronary artery bypass graft surgery in 2004 2. Non-STEMI 3. Hypertension 4. Hyperlipidemia 5. Uncontrolled diabetes with hemoglobin A1c 9.2% 6. Hypothyroidism 7. Previous tobacco dependence 8. Noncompliance with medication Plan: The patient was seen and examined in the cardiac stepdown unit. Chart/ diagnostics were reviewed. The case was discussed in detail with Dr. Hoffmann. Perioperative course of redo coronary artery bypass graft surgery was discussed with the and somewhat with the patient, all questions were answered. The case will be discussed in detail with Dr. Dixon. He does have significant risk factors of uncontrolled diabetes, medical noncompliance with medication, and age. Patient would be expected to comply with activity restrictions and continue postoperative medication therapy, it is unclear at this time if he truly will be compliant with therapy. Carotid Dopplers and pulmonary function tests were ordered. Will calculate STS risk score. Continued medical management per primary care service and cardiology. More recommendations to follow. Thank you Dr. Hoffmann for this consult. Please call us with any questions. Time with Patient: Greater than 30 <Diomedes Dixon R - Last Filed: 12/11/18 08:48> Surgical - Exam Vital Signs Temp Pulse Resp BP Pulse Ox 97.8 F 95 24 152/89 95 12/09/18 00:35 12/09/18 00:35 12/09/18 00:35 12/09/18 00:35 12/09/18 00:35 Results - Labs 12/09/18 00:45 12/09/18 00:45 Abnormal Lab Results - Last 24 Hours (Table) 12/10/18 12/10/18 12/10/18 Range/Units 11:13 16:33 20:53 POC Glucose (mg/dL) 108 H 172 H 190 H (75-99) mg/dL Troponin I (0.000-0.034) ng/mL 12/11/18 12/11/18 Range/Units 05:37 05:59 POC Glucose (mg/dL) 170 H (75-99) mg/dL Troponin I 13.100 H* (0.000-0.034) ng/mL Thyroid panel 12/11/18 Range/Units 05:59 TSH 1.640 (0.465-4.680) mIU/L Pituitary panel 12/11/18 Range/Units 05:59 TSH 1.640 (0.465-4.680) mIU/L Assessment and Plan Assessment: Chart and films were viewed and patient examined. Patient presents with acute infarction, troponins have gone up to 13. Cath shows complete occlusion of the LAD with left to left collateral filling of the distal vessel there is three- vessel coronary artery disease there are 2 patent vein grafts to the right coronary distribution one of these has moderate disease present but is patent and flowing the other has no significant disease present but leads to a very diseased distal vessel and has only limited flow present. Echocardiogram shows poor left ventricular function with anterior apical akinesis and a thrombus in the left ventricle involving the apex anterior and septal region. Reoperative surgery on this patient as technically feasible but will clearly be high risk with mortality likely approaching 10%. Patient will require 4-6 weeks of anticoagulation prior to save cardiac surgery due to intraventricular thrombus. Patient is not at all sure he will consent to reoperative coronary bypass surgery and has a history of noncompliance with medication. He is stopped all his diabetic medications and his A1c is 9.2. Case is discussed with Dr. REAL Hoffmann. Plan is to attempt percutaneous revascularization of the right coronary distribution. It is suspected that the anterior apical wall is infarcted and revascularization here is unlikely to serve any useful purpose. If successful revascularization of the right coronary distribution can be accomplished, then staged intervention to the circumflex distribution could be entertained. If we are not successful in revascularizing the right coronary distribution then consideration for high risk reoperative bypass surgery would be given after an appropriate period of anticoagulation for the left ventricular thrombus.
[2018-12-10] MEDS: ATORVASTATIN 80 MG TAB PO SCH (20:17)
[2018-12-10 20:25] VITALS: TEMP 97.6
[2018-12-10 20:55] LABS: Glucose,Whole Blood 190 mg/dL (75-99)
[2018-12-10] MEDS: INSULIN DETEMIR (LEVEMIR) 100 UNIT/ML SYR SQ SCH (21:00)
--- NOTE | 2018-12-10 21:57 | US ---
EXAMINATION TYPE: US carotid duplex BILAT DATE OF EXAM: 12/10/2018 COMPARISON: NONE CLINICAL HISTORY: preop cabg. Pre Op cabbage. EXAM MEASUREMENTS: RIGHT: Peak Systolic Velocity (PSV) cm/sec ----- Right CCA: 52.2 ----- Right ICA: 92.9 ----- Right ECA: 107.5 ICA/CCA ratio: 1.8 RIGHT: End Diastole cm/sec ----- Right CCA: 5.7 ----- Right ICA: 12.9 ----- Right ECA: 7.1 LEFT: Peak Systolic Velocity (PSV) cm/sec ----- Left CCA: 94.3 ----- Left ICA: 267.6 ----- Left ECA: 130.7 ICA/CCA ratio: 2.8 LEFT: End Diastole cm/sec ----- Left CCA: 14.4 ----- Left ICA: 61.8 ----- Left ECA: 10.9 VERTEBRALS (direction of flow): Right Vertebral: Antegrade Left Vertebral: Antegrade Rhythm: Normal IMPRESSION: 1) LEFT ICA: FINDINGS SUGGEST >70% LEFT ICA STENOSIS; CTA CAN FULLY CHARACTERIZE. 2) RIGHT ICA: LESS THAN 50% STENOSIS.
[2018-12-10] MEDS: ZOLPIDEM 10 MG TAB PO PRN (23:37)
[2018-12-11] MEDS: HEPARIN SOD,PORK IN 0.45% NACL 25,000 UNIT in 0.45% NACL 1 250ML.BAG IV SCH (02:27)
[2018-12-11] MEDS: SODIUM CHLORIDE 0.9% 1,000 ML IV SCH (02:27)
[2018-12-11 05:39] LABS: Glucose,Whole Blood 170 mg/dL (75-99)
[2018-12-11] MEDS: LEVOTHYROXINE 25 MCG TAB PO SCH (06:40)
--- NOTE | 2018-12-11 08:28 | CC ---
CARDIAC CATHETERIZATION REPORT DATE OF SERVICE: 12/10/2018 PROCEDURE: Left heart catheterization and coronary angiography and selective injection of bypass grafts. PERFORMED BY: Dr. Andrea Hoffmann. Moderate conscious sedation time was about 21 minutes. Patient was administered Versed. His oxygen saturation, hemodynamics and EKG were monitored closely. CLINICAL INFORMATION: Mr. Diomedes Sharma is a 78-year-old gentleman with a known history of hypertension, hyperlipidemia, type 2 diabetes, and CAD. In 1995 he presented with unstable angina, underwent stenting of LAD. In 1994 he presented with an acute inferior NH underwent stenting of RCA in the setting of an infarction. Since then, he has done fairly well and in 2004 because of severe restenosis and a heavy calcification in the distal RCA, the lesion could not be opened up even with very high pressures and therefore he underwent aortocoronary bypass surgery with 2 separate vein grafts to the PDA and PLV branch of RCA. LAD at that time was patent. Circumflex was small and did not have significant disease. This surgery was performed on October 04, 2005. Patient has not followed up with me since then and he comes into the hospital with chest pain, unstable angina and Dr. Vimal Funez evaluated the patient and he has [id number] NH. He was advised coronary angiography after due discussion. I had a long talk with the patient and and explained to them the rationale, risks, benefits, and options and proceeded to perform the procedure. PROCEDURE NOTE: Under local anesthesia and strict aseptic precautions, a 6-Uzbek introducer was placed in the right femoral artery. I used a standard left Lillian catheter to perform selective coronary angiography of the left coronary artery. I used an AR modified catheter for selective coronary angiography of the right coronary artery and also used the same catheter to get the 2 vein grafts to the 2 branches of RCA. A Patel catheter was used to check a BAL injection even though BAL graft was not used. The catheter and sheath were taken out and Angio-Seal device used to secure hemostasis and patient was sent to the room in a stable condition. The aortic valve was not crossed. LV pressures were not checked. CARDIAC CATHETERIZATION FINDINGS: I did not check LV pressures. CORONARY ANGIOGRAPHY FINDINGS: LEFT MAIN CORONARY ARTERY: This is a long patent vessel has mild 15% narrowing distally and trifurcates into LAD, circumflex and ramus intermedius. Left main itself has no significant disease. LEFT ANTERIOR DESCENDING CORONARY ARTERY: This vessel is totally occluded in the midportion with very sluggish flow. The stenosis is noted in the stented segment. A large septal comes off and the septal also has a tight narrowing. LAD, however , fills somewhat late and is a graftable vessel with a decent caliber runs all the way to the apex, but within the stented segment, there is a subtotal lesion with sluggish flow. There are several septal branches that come off and one of the large septal has a tight stenosis as it comes off from the LAD. RAMUS INTERMEDIUS: This is a fair caliber vessel that comes off and bifurcates into 2 branches. The superior branch appears to be of a fair caliber of about 2.25 mm and this is a graftable vessel. The inferior branch has no significant disease, but superior branches has an 80% to 90% narrowing. LEFT POSTERIOR CIRCUMFLEX CORONARY ARTERY: Technically a small caliber nondominant vessel that runs laterally has minor irregularities and no significant disease. RIGHT CORONARY ARTERY: This vessel is totally occluded in the mid portion after 2 large acute marginal branches. The 2 acute marginal branches and the opacified RCA has no significant disease. The proximal RCA has about a 80% narrowing and then comes off a conus branch, then there is a 40% narrowing and then 2 acute marginals come off after which the vessel is totally occluded. SAPHENOUS VEIN GRAFT TO THE PLV BRANCH OF RCA: This graft at its origin is free of significant disease. At the proximal 1/3, there are multiple areas of narrowing , one of which is at least 80% to 90%. The graft does not appear to be very healthy and distally it opacifies 2 branches of the PLV. No significant disease with the PLV, but the body of the vein graft has 80% to 90% narrowing and mild diffuse disease throughout. SAPHENOUS VEIN GRAFT TO THE PDA BRANCH OF CIRCUMFLEX: This graft is widely patent in its origin and course and the insertion site has a tight lesion and there is very little outflow noted. The outflow appears to be very limited and this could be the culprit lesion, but there is a lot of thrombus in the distal portion where the PDA branch attachment is noted. LEFT INTERNAL MAMMARY GRAFT. This was injected mainly to look at the patency of the vessel. The left internal mammary artery is of good caliber and distribution does not have any side branches. It appears to be an easily graftable conduit. FINAL IMPRESSION: This patient's aortic valve was not crossed. There was a question of left ventricular thrombus. I therefore did not cross the aortic valve and left ventricular pressures were not measured. He has a subtotal occlusion of mid LAD at the site of previous stenting, but LAD is a graftable vessel. There is a tight lesion in the septal branch which is a large septal branch. The RCA is totally occluded in the midportion. There are 2 grafts to the RCA. The PLV branch graft is patent but has a 90% body of graft stenosis. The PDA graft at the insertion site has a stenosis with thrombus. Circumflex is free of significant disease, but small vessel ramus has 2 branches , superior branch has a 90% narrowing. RECOMMENDATIONS: This patient has significant LV dysfunction on echo and LV thrombus. I am recommending aortocoronary bypass surgery with graft to the LAD, ramus, and also to the branches of RCA. However, this is a high-risk redo procedure. I will await input from the surgeon and based on the recommendations, we will make further plans. If surgery is thought to be very high risk, then I will consider opening up the PDA graft as well as the minto LAD. However, I will await input from the surgeon. Findings were discussed with the patient and family. Prognosis remains guarded. MMODL / IJN: [id number] / DANNIELLE
[2018-12-11] MEDS ORDERED: ASPIRIN 81 MG PO SCH (09:00)
[2018-12-11] MEDS: INSULIN ASPART (NovoLOG) 100 UNIT/ML VIAL SQ SCH ×2 (09:42→12:46)
[2018-12-11] MEDS: LISINOPRIL 10 MG TAB PO SCH (09:54)
[2018-12-11] MEDS: METOPROLOL TARTRATE 50 MG TAB PO SCH (09:54)
[2018-12-11 11:01] VITALS: RESP 18
[2018-12-11 11:49] LABS: Glucose,Whole Blood 240 mg/dL (75-99)
[2018-12-11] MEDS ORDERED: METOPROLOL SUCCINATE (ER) 50 MG TAB.ER.24H PO SCH (13:15)
[2018-12-11 13:18] LABS: Cholesterol 146 mg/dL (<200); HDL Cholesterol 43 mg/dL (40-60); LDL Cholesterol,Calculated 73 mg/dL (0-99); Triglycerides 148 mg/dL (<150)
--- NOTE | 2018-12-11 14:14 | PN ---
PROGRESS NOTE CHIEF COMPLAINT: Chest pain and N-STEMI. HISTORY OF PRESENT ILLNESS: This gentleman is doing well. Today, has no complaints. Cardiac cath demonstrated severe and generalized coronary artery disease. He has been referred to Cardiac Surgery. He will be evaluated for bypass procedure. This will certainly be complicated by the fact that he has had prior surgery and he is a poor surgical risk. On top of that, he is a very noncompliant individual and is not likely to follow directions following surgery. He has never been willing to control his diabetes. PHYSICAL EXAM: His chest is clear and cardiac exam is normal. IMPRESSION: 1. Severe multiple vessel coronary artery disease. 2. Insulin-dependent diabetes mellitus. PLAN: Await decision regarding treatment plan. MMODL / IJN: [id number] /
[2018-12-11 14:30] VITALS: BP 107/71; PULSE 66
--- NOTE | 2018-12-12 14:54 | DS ---
DISCHARGE SUMMARY DATE OF ADMISSION: 12/09/2018 DATE OF DISCHARGE: 12/11/2018 CHIEF COMPLAINT: Chest pain. HISTORY OF PRESENT ILLNESS AND PHYSICAL EXAM: Details of this man's history and physical can be found in the initial workup. LABORATORY STUDIES: While he was in the hospital, he had laboratory studies, details of which can be found in the laboratory section of his chart. COURSE IN HOSPITAL: After admission, he was placed on bedrest, started on intravenous fluids. Cardiac enzymes which indicated that he had a non ST-segment elevation MN. He was seen by Cardiology. At first, he refused, but then he went for cardiac cath where he was found to have multiple critical coronary artery stenoses. He was referred to Cardiac Surgery and they felt he was too high a risk for repeat coronary artery bypass graft attempt. Cardiology then indicated that they would try to treat him conservatively with PCI, but the patient signed out AGAINST MEDICAL ADVICE. FINAL DIAGNOSES: 1. Coronary artery disease. 2. Poorly controlled insulin dependent diabetes mellitus. OPERATIONS: Cardiac cath. CONSULTATIONS: Cardiology and Cardiac Surgery. He is improved. MMELTON / ANAN: [id number] /
== END 2018-12-11 15:32 | disposition left against medical advice (07) | DRG 281 ==
LOC: EC 00:30 → 3SCARD 02:28 → OBSVTOIN 13:24
PROVIDERS: ADMIT Family Medicine; ATTEND Family Medicine
PROC: 4A023N7 Measurement of Cardiac Sampling and Pressure, Left Heart, Percutaneous Approach (ICD-10-PCS; principal; 2018-12-11)
PROC: B2111ZZ Fluoroscopy of Multiple Coronary Arteries using Low Osmolar Contrast (ICD-10-PCS; 2018-12-11)
PROC: B2131ZZ Fluoroscopy of Multiple Coronary Artery Bypass Grafts using Low Osmolar Contrast (ICD-10-PCS; 2018-12-11)
DX: I21.4 Non-ST elevation (NSTEMI) myocardial infarction (principal); T82.857A Stenosis of other cardiac prosthetic devices, implants and grafts, initial encounter; I25.810 Atherosclerosis of coronary artery bypass graft(s) without angina pectoris; E11.65 Type 2 diabetes mellitus with hyperglycemia; I27.20 Pulmonary hypertension, unspecified; I08.1 Rheumatic disorders of both mitral and tricuspid valves; I45.10 Unspecified right bundle-branch block; E03.9 Hypothyroidism, unspecified; E78.5 Hyperlipidemia, unspecified; F41.9 Anxiety disorder, unspecified; I10 Essential (primary) hypertension; I25.2 Old myocardial infarction; M19.90 Unspecified osteoarthritis, unspecified site; Z79.4 Long term (current) use of insulin; Z79.890 Hormone replacement therapy; Z79.899 Other long term (current) drug therapy; Z96.643 Presence of artificial hip joint, bilateral; Z95.5 Presence of coronary angioplasty implant and graft; Z95.1 Presence of aortocoronary bypass graft; Z87.891 Personal history of nicotine dependence; Z88.5 Allergy status to narcotic agent; Z88.8 Allergy status to other drugs, medicaments and biological substances; Z91.041 Radiographic dye allergy status; Z91.128 Patient's intentional underdosing of medication regimen for other reason; Z80.8 Family history of malignant neoplasm of other organs or systems
CPT/HCPCS: 36415; 71046; 80053; 80061; 82550; 82553; 83036; 83735; 84443; 84484; 85025; 85610; 85730; 93005; 93306; 93455; 93880; 94150; 96361; 96365; 96366; 96375; 99285

== ENCOUNTER → 2019-01-31 | Outpatient (CLI) | payer MEDICARE ==
--- NOTE | 2019-01-31 13:05 | CT ---
EXAMINATION TYPE: CT brain wo con DATE OF EXAM: 01/31/2019 COMPARISON: None HISTORY: History of parkinsons, abnormal extremity movement CT DLP: 1081.[address] of the brain was performed. The ventricles, basal cisterns and sulci overlying the cerebral convexities demonstrate mild enlargem ent. There is no evidence for intracranial hemorrhage or sulcal effacement. There is decreased attenuation about the periventricular white matter and deep white matter of both c erebral hemispheres, compatible with chronic small vessel ischemia. Differential diagnosis does inclu de demyelination. No mass effects are seen.No midline shift. Osseous calvarium is intact. If symptoms persist consider MRI. IMPRESSION: 1. Age related atrophic and chronic small vessel ischemic change without acute intracranial process s een at this time.
--- NOTE | 2019-01-31 13:30 | XR ---
EXAMINATION TYPE: XR cervical spine comp DATE OF EXAM: 01/31/2019 COMPARISON: 12/09/2018 HISTORY: Pain TECHNIQUE: Four views are submitted. FINDINGS: The odontoid is intact. There are no compression deformities. The prevertebral soft tissue structur es are within normal limits. Large hypertrophic spurring and severe degenerative disc disease C3-C7. There is multilevel facet arthropathy. Multilevel bilateral foraminal encroachment. Loss of the norm al cervical lordosis. Suspect canal stenosis C4-C5. IMPRESSION: 1. Severe multilevel degenerative disc disease and hypertrophic changes with multilevel significant f oraminal encroachment. Recommend follow-up MRI..
== END | disposition home or self-care (01) ==
LOC: RADCTMAIN 12:25
PROVIDERS: ATTEND Psychiatry & Neurology Neurology
DX: I67.82 Cerebral ischemia (principal); G31.1 Senile degeneration of brain, not elsewhere classified; M50.31 Other cervical disc degeneration, high cervical region
CPT/HCPCS: 70450; 72050

== ENCOUNTER 2021-10-18 14:29 | Inpatient (IN) | payer MEDICARE ==
--- NOTE | 2021-10-18 14:38 | ED ---
General Adult HPI - General Stated complaint: SOB Time Seen by Provider: 10/18/21 14:31 Source: patient, EMS, RN notes reviewed Mode of arrival: EMS Limitations: physical limitation - History of Present Illness Initial comments: This is an 81-year-old male presents emergency from via EMS from PCPs office with chief complaint of shortness breath, weakness. Patient states states that his been having increasing weakness or last few days. Patient found to be tachypnea, increasing short of breath in office. Patient does have a history of COPD, CHF. Patient states she's had no change in medications. No significant fever that he knew about. He states just very weak feeling. Patient has no complaints of chest pain currently. - Related Data Home Medications Medication Instructions Recorded Confirmed Glimepiride [Amaryl] 8 mg PO [id number] 07/28/15 12/09/18 Levothyroxine Sodium [Synthroid] 25 mcg PO DAILY 07/28/15 12/09/18 Lisinopril [Prinivil] 10 mg PO DAILY 07/28/15 12/09/18 Metoprolol Tartrate [Lopressor] 50 mg PO DAILY 07/28/15 12/09/18 Zolpidem [Ambien] 10 mg PO HS PRN 07/28/15 12/09/18 Ergocalciferol [Vitamin D2 50,000 unit PO Q30D 07/29/15 12/09/18 (DRISDOL)] busPIRone HCL 15 mg PO TID PRN 06/06/17 12/09/18 Nitroglycerin Sl Tabs [Nitrostat] 0.4 mg SUBLINGUAL Q5M PRN 01/15/18 12/09/18 Ibuprofen [Motrin] 800 mg PO QID 12/09/18 12/09/18 Allergies Allergy/AdvReac Type Severity Reaction Status Date / Time famotidine [From Pepcid] Allergy Rapid Verified 12/09/18 08:27 Heart Rate; Dyskinesia Iodinated Contrast Media Allergy Unknown Verified 12/09/18 08:27 [Iodinated Contrast Media - IV Dye] Iodine and Iodide Containing Allergy Unknown Verified 12/09/18 08:27 Produc oxycodone HCl [From Percocet] Allergy Unknown Verified 12/09/18 08:27 pravastatin sodium Allergy Unknown Verified 12/09/18 08:27 [From Pravachol] simvastatin [From Zocor] Allergy Unknown Verified 12/09/18 08:27 tramadol HCl [From Ultram] Allergy Unknown Verified 12/09/18 08:27 cefdinir [From Omnicef] AdvReac ANXIETY Verified 12/09/18 08:27 hydrocodone AdvReac AGITATION Verified 12/09/18 08:27 hydrocodone bitartrate AdvReac AGITATION Verified 12/09/18 08:27 [From Vicodin] levofloxacin [From Levaquin] AdvReac Nausea & Verified 12/09/18 08:27 Vomiting & Diarrhea Review of Systems ROS Statement: Those systems with pertinent positive or pertinent negative responses have been documented in the HPI. ROS Other: All systems not noted in ROS Statement are negative. Past Medical History Past Medical History: Coronary Artery Disease (CAD), Diabetes Mellitus, Hypertension, Myocardial Infarction ([place]), Osteoarthritis (OA), Thyroid Disorder Additional Past Medical History / Comment(s): Medical noncompliance Last Myocardial Infarction Date:: 1994 History of Any Multi-Drug Resistant Organisms: None Reported Past Surgical History: Coronary Bypass/CABG, Heart Catheterization With Stent, Orthopedic Surgery Additional Past Surgical History / Comment(s): Bilateral hip replacement, CABG 25 years ago Past Anesthesia/Blood Transfusion Reactions: No Reported Reaction Date of Last Stent Placement:: 1994 Past Psychological History: No Psychological Hx Reported Past Alcohol Use History: None Reported Additional Past Alcohol Use History / Comment(s): Patient was a smoker one pack per day for 45 years and quit in 1993. No marijuana or illicit drug use. He lives at home with his . There are 2 adult children in the home ages 42 and 50. There is also a cat in the home. Patient denies any extensive travel but does have a second home in [place] and is there on a regular basis. He denies any service. Past Drug Use History: None Reported - Past Family History Mother Additional Family Medical History / Comment(s): Mom from brain cancer. Father History Unknown: Yes Additional Family Medical History / Comment(s): Father after a fall at assisted. General Exam General appearance: alert, in distress Head exam: Present: atraumatic, normocephalic, normal inspection Eye exam: Present: normal appearance, PERRL, EOMI. Absent: scleral icterus, conjunctival injection, periorbital swelling ENT exam: Present: normal exam, normal oropharynx, mucous membranes moist Neck exam: Present: normal inspection. Absent: tenderness, meningismus, l ymphadenopathy Respiratory exam: Present: respiratory distress, wheezes, rales. Absent: normal lung sounds bilaterally, rhonchi, stridor Cardiovascular Exam: Present: regular rate, normal rhythm, normal heart sounds. Absent: systolic murmur, diastolic murmur, rubs, gallop, clicks Neurological exam: Present: alert, oriented X3 Skin exam: Present: warm, dry, intact, normal color. Absent: rash Course Vital Signs 10/18/21 10/18/21 10/18/21 14:41 14:43 14:52 Temperature 98.6 F Pulse Rate 107 H 109 H Respiratory 35 H 35 H Rate Blood Pressure 132/115 126/89 O2 Sat by Pulse 55 L 90 L 95 Oximetry - Reevaluation(s) Reevaluation #1: 10/18/21 14:46 I did have discussion with the patient with son in the room. Patient is awake alert and orientated able to make his own decisions. Patient states he does not want to be intubated there is does not want any mechanical ventilation. Patient is okay with CPR. Medical Decision Making - Medical Decision Making 81-year-old male presented to the emergency department via EMS in respiratory distress. Patient is immediately placed on BiPAP. Patient continues to have respirations between 30 and 40. Patient's x-ray shows bilateral basilar pneumonia consistent with covid 19 pneumonia which patient has positive. Patient has a troponin is elevated at 2.6, BNP is elevated at 7700. patient has no definite pleural effusion, some CHF on chest x-ray. Patient does have mild a cab. Patient's will be placed IV steroids, admitted for further treatment and management with pulmonary and cardiology patient does have a lactic of 5.2 patient has no signs of actual infection patient will not be given fluid boluses has a history of CHF. - Lab Data Result diagrams: 10/18/21 14:52 10/18/21 14:52 Lab Results 10/18/21 10/18/21 10/18/21 Range/Units 14:43 14:52 14:52 WBC 2.5 L (3.8-10.6) k/uL RBC 4.82 (4.30-5.90) m/uL Hgb 16.0 (13.0-17.5) gm/dL Hct 48.4 (39.0-53.0) % MCV 100.3 H (80.0-100.0) fL MCH 33.2 (25.0-35.0) pg MCHC 33.1 (31.0-37.0) g/dL RDW 15.0 (11.5-15.5) % Plt Count 115 L (150-450) k/uL MPV 8.7 Neutrophils % 88 % Lymphocytes % 7 % Monocytes % 4 % Eosinophils % 0 % Basophils % 0 % Neutrophils # 2.2 (1.3-7.7) k/uL Lymphocytes # 0.2 L (1.0-4.8) k/uL Monocytes # 0.1 (0-1.0) k/uL Eosinophils # 0.0 (0-0.7) k/uL Basophils # 0.0 (0-0.2) k/uL Manual Slide Review Performed Poikilocytosis (manual Present Macrocytosis Slight PT 11.0 (9.0-12.0) sec INR 1.0 (<1.2) APTT 26.5 (22.0-30.0) sec Sodium (137-145) mmol/L Potassium (3.5-5.1) mmol/L Chloride (98-107) mmol/L Carbon Dioxide (22-30) mmol/L Anion Gap mmol/L BUN (9-20) mg/dL Creatinine (0.66-1.25) mg/dL Est GFR (CKD-EPI)AfAm (>60 ml/min/1.73 sqM) Est GFR (CKD-EPI)NonAf (>60 ml/min/1.73 sqM) Glucose (74-99) mg/dL Plasma Lactic Acid Jackson (0.7-2.0) mmol/L Calcium (8.4-10.2) mg/dL Magnesium (1.6-2.3) mg/dL Total Bilirubin (0.2-1.3) mg/dL AST (17-59) U/L ALT (4-49) U/L Alkaline Phosphatase (38-126) U/L Troponin I (0.000-0.034) ng/mL NT-Pro-B Natriuret Pep pg/mL Total Protein (6.3-8.2) g/dL Albumin (3.5-5.0) g/dL Coronavirus (PCR) Detected A (Not Detectd) 10/18/21 10/18/21 10/18/21 Range/Units 14:52 14:52 14:52 WBC (3.8-10.6) k/uL RBC (4.30-5.90) m/uL Hgb (13.0-17.5) gm/dL Hct (39.0-53.0) % MCV (80.0-100.0) fL MCH (25.0-35.0) pg MCHC (31.0-37.0) g/dL RDW (11.5-15.5) % Plt Count (150-450) k/uL MPV Neutrophils % % Lymphocytes % % Monocytes % % Eosinophils % % Basophils % % Neutrophils # (1.3-7.7) k/uL Lymphocytes # (1.0-4.8) k/uL Monocytes # (0-1.0) k/uL Eosinophils # (0-0.7) k/uL Basophils # (0-0.2) k/uL Manual Slide Review Poikilocytosis (manual Macrocytosis PT (9.0-12.0) sec INR (<1.2) APTT (22.0-30.0) sec Sodium 140 (137-145) mmol/L Potassium 5.4 H (3.5-5.1) mmol/L Chloride 106 (98-107) mmol/L Carbon Dioxide 16 L (22-30) mmol/L Anion Gap 18 mmol/L BUN 74 H (9-20) mg/dL Creatinine 1.67 H (0.66-1.25) mg/dL Est GFR (CKD-EPI)AfAm 44 (>60 ml/min/1.73 sqM) Est GFR (CKD-EPI)NonAf 38 (>60 ml/min/1.73 sqM) Glucose 136 H (74-99) mg/dL Plasma Lactic Acid Jackson 5.1 H* (0.7-2.0) mmol/L Calcium 8.4 (8.4-10.2) mg/dL Magnesium 2.4 H (1.6-2.3) mg/dL Total Bilirubin 1.4 H (0.2-1.3) mg/dL AST 312 H (17-59) U/L ALT 92 H (4-49) U/L Alkaline Phosphatase 136 H (38-126) U/L Troponin I 2.630 H* (0.000-0.034) ng/mL NT-Pro-B Natriuret Pep pg/mL Total Protein 6.7 (6.3-8.2) g/dL Albumin 3.3 L (3.5-5.0) g/dL Coronavirus (PCR) (Not Detectd) 10/18/21 Range/Units 14:52 WBC (3.8-10.6) k/uL RBC (4.30-5.90) m/uL Hgb (13.0-17.5) gm/dL Hct (39.0-53.0) % MCV (80.0-100.0) fL MCH (25.0-35.0) pg MCHC (31.0-37.0) g/dL RDW (11.5-15.5) % Plt Count (150-450) k/uL MPV Neutrophils % % Lymphocytes % % Monocytes % % Eosinophils % % Basophils % % Neutrophils # (1.3-7.7) k/uL Lymphocytes # (1.0-4.8) k/uL Monocytes # (0-1.0) k/uL Eosinophils # (0-0.7) k/uL Basophils # (0-0.2) k/uL Manual Slide Review Poikilocytosis (manual Macrocytosis PT (9.0-12.0) sec INR (<1.2) APTT (22.0-30.0) sec Sodium (137-145) mmol/L Potassium (3.5-5.1) mmol/L Chloride (98-107) mmol/L Carbon Dioxide (22-30) mmol/L Anion Gap mmol/L BUN (9-20) mg/dL Creatinine (0.66-1.25) mg/dL Est GFR (CKD-EPI)AfAm (>60 ml/min/1.73 sqM) Est GFR (CKD-EPI)NonAf (>60 ml/min/1.73 sqM) Glucose (74-99) mg/dL Plasma Lactic Acid Jackson (0.7-2.0) mmol/L Calcium (8.4-10.2) mg/dL Magnesium (1.6-2.3) mg/dL Total Bilirubin (0.2-1.3) mg/dL AST (17-59) U/L ALT (4-49) U/L Alkaline Phosphatase (38-126) U/L Troponin I (0.000-0.034) ng/mL NT-Pro-B Natriuret Pep 7770 pg/mL Total Protein (6.3-8.2) g/dL Albumin (3.5-5.0) g/dL Coronavirus (PCR) (Not Detectd) Critical Care Time Critical Care Time: Yes Total Critical Care Time: 35 Disposition Clinical Impression: COVID-19, NSTEMI (non-ST elevated myocardial infarction), Respiratory failure, Lactic acidosis Disposition: ADMITTED IP TO THIS [facility] Condition: Serious Referrals: Rodri Crespo MD [Primary Care Provider] - 1-2 days
[2021-10-18 15:09] LABS: Partial Thromboplastin Time 26.5 sec (22.0-30.0)
[2021-10-18 15:19] LABS: Basophils % (A) 0 %; Eosinophils % (A) 0 %; HCT 48.4 % (39.0-53.0); Lymphocytes # (A) 0.2 k/uL (1.0-4.8); Lymphocytes % (A) 7 %; MCH 33.2 pg (25.0-35.0); MCHC 33.1 g/dL (31.0-37.0); MCV 100.3 fL (80.0-100.0); Macrocytosis Slight; Mean Platelet Volume 8.7; Monocytes # (A) 0.1 k/uL (0-1.0); Monocytes % (A) 4 %; Neutrophils # (A) 2.2 k/uL (1.3-7.7); Neutrophils % (A) 88 %; Platelet Count 115 k/uL (150-450); RBC 4.82 m/uL (4.30-5.90); WBC 2.5 k/uL (3.8-10.6)
[2021-10-18 15:27] LABS: Albumin 3.3 g/dL (3.5-5.0); Calcium 8.4 mg/dL (8.4-10.2); Magnesium 2.4 mg/dL (1.6-2.3); Potassium 5.4 mmol/L (3.5-5.1); Total Bilirubin 1.4 mg/dL (0.2-1.3); Total Protein 6.7 g/dL (6.3-8.2)
--- NOTE | 2021-10-18 15:55 | XR ---
EXAMINATION TYPE: XR chest 1V portable DATE OF EXAM: 10/18/2021 HISTORY: Shortness of breath. COMPARISON: 12/09/2018 TECHNIQUE: Single view of the chest is submitted. FINDINGS: Demonstrated are scattered senescent parenchymal change. Patchy basilar infiltrates compatible with underlying pneumonia. The heart is stable. Hilar and mediastinal structures are within normal limits. Degenerative changes are seen of the dorsal spine. IMPRESSION: 1. Patchy basilar infiltrates compatible with underlying pneumonia.
[2021-10-18 16:00] LABS: Poikilocytosis (M) Present
[2021-10-18] MEDS ORDERED: LORazepam 2 MG/ML INJ IV STA ×2 (16:06→23:16)
[2021-10-18] MEDS ORDERED: NALOXONE 0.4 MG/ML 1 ML VIAL IV PRN (16:13)
[2021-10-18] MEDS ORDERED: ONDANSETRON 4 MG/2 ML VIAL IVP PRN (16:13)
[2021-10-18] MEDS ORDERED: ACETAMINOPHEN TAB 325 MG TAB PO PRN (16:13)
[2021-10-18] MEDS ORDERED: DEXAMETHASONE SOD PHOSPHATE 10 MG/ML 1 ML VIAL IVP STA (16:15)
[2021-10-18] MEDS: SODIUM CHLORIDE 0.9% 1,000 ML IV SCH (16:29)
[2021-10-18] MEDS ORDERED: HEPARIN SODIUM 1,000 UN/ML (10ML VL) IV ONE (16:49)
[2021-10-18] MEDS ORDERED: HEPARIN SODIUM 1,000 UN/ML (10ML VL) IV PRN (16:49)
[2021-10-18] MEDS ORDERED: HEPARIN SOD,PORK IN 0.45% NACL 25,000 UNIT in 0.45% NACL 1 250ML.BAG IV SCH (17:00)
[2021-10-18] MEDS ORDERED: SODIUM CHLORIDE 0.9% 500 ML 500 ML IV ONE (23:18)
[2021-10-19] MEDS ORDERED: LORazepam 2 MG/ML INJ IV PRN (01:26)
[2021-10-19 04:44] LABS: HCT 39.8 % (39.0-53.0); HGB 13.6 gm/dL (13.0-17.5); MCH 34.1 pg (25.0-35.0); MCHC 34.2 g/dL (31.0-37.0); MCV 99.6 fL (80.0-100.0); Macrocytosis Slight; RDW 15.1 % (11.5-15.5); WBC 3.5 k/uL (3.8-10.6)
[2021-10-19] MEDS ORDERED: SODIUM CHLORIDE 0.9% 1,000 ML IV ONE ×2 (04:44→06:24)
[2021-10-19] MEDS ORDERED: SODIUM CHLORIDE 0.9% 1,000 ML IV SCH (04:45)
[2021-10-19] MEDS ORDERED: FLUMAZENIL 0.1 MG/ML 5 ML VIAL IVP STA (04:48)
[2021-10-19 04:56] LABS: ABG Base Excess -9.2 mmol/L; ABG HCO3 16 mmol/L (21-25); ABG Oxygen Saturation 96.3 % (94-97); ABG PCO2 29 mmHg (35-45); ABG PH 7.36 (7.35-7.45); ABG PO2 88 mmHg (83-108); ABG TCO2 17 mmol/L (19-24); Allen Test Performed? Yes
[2021-10-19] MEDS ORDERED: PIPERACILLIN-TAZOBACTAM 3.375 GM in SODIUM CHLORIDE 0.9% 100 ML IVPB SCH (05:07)
[2021-10-19 05:15] LABS: Platelet Count 86 k/uL (150-450)
[2021-10-19] MEDS ORDERED: DEXTROSE 50% SYRINGE 50 ML IVP ONE (05:19)
[2021-10-19 05:20] LABS: Glucose,Whole Blood 57 mg/dL (75-99)
[2021-10-19 05:24] LABS: Albumin 2.5 g/dL (3.5-5.0); Calcium 6.8 mg/dL (8.4-10.2); Magnesium 2.2 mg/dL (1.6-2.3); Total Bilirubin 1.6 mg/dL (0.2-1.3); Total Protein 5.8 g/dL (6.3-8.2)
[2021-10-19 05:41] LABS: Glucose,Whole Blood 199 mg/dL (75-99)
[2021-10-19] MEDS ORDERED: NOREPINEPHRIN 4 MG-0.9% NS PMX 4 MG/250 ML ML IV ONE (05:49)
--- NOTE | 2021-10-19 06:05 | P.EN ---
A team note. 2 A teams called on this patient initial one was around 11 pm , for increase work of breathing , patient admitted for COVID pneumonia and hypoxemia . and currently on BIpap . patient was given a dose of Ativan , and he seemed to tolerate Bipap better. oxygen sat remains in mid 90s%, and BP low with systolic in the low 90s patient was also given a gentle bolus of 500 cc saline , as his urine looked dark, and LA elevated. RN to monitor urine output . overall , patient awake, following commands on bipap, tachypnic , currently on heparin drip for elevated trops (with strong cardiac history ) denies any chest pain , body aches or SOB. second A team , called for changes in mental status patient around 4 AM became less responsive, and hypotensive. upon further evaluation , patient has received a second dose of ativan by his primary doc around 3 am due to repeated attempts of pulling on mask and IVs and being restless. assessment acute change in mental status , in patient admitted for covid pneumonia on Bipap , hypotensive, and on heparin for elevated trops. patient is not responding to painful stimuli blood sugar checked 57 mg/dl, not improved after 1 amp D50% flumazenill two doses given with slight improvement in responsiveness, now patient again trying to pull on his mask with poor effort, and localizes pain found to have new pain at the right upper quadrant , with deep palpation with deep breaths, he seems to have a lot of pain in the RUQ, as he pushes on my hands, grimices and becomes tachypnic and restless, immediately improves upon removing examiners hand, no other tender spots on his abdomen ,blood work reviewed and showed acute elevation in liver enzymes. lactic acid worsening , and BP worsening, however, patient urine output improved in color and volume since the last bolus given at 11 PM. current BP 74/45, HR 124, tachypnic, oxygen sat 95% on bipap ABG reviewed , unremarkable assessment concerns regarding ascending cholangitis rule out brain bleed with sudden change in mental status on heparin drip , (not improving much with correcting blood sugar and reversing benzo) CT without contrast ordered hold heparin drip until intracranial pathology ruled out check stat blood cultures check liver US start patient on zosyn for possible ascending cholangitis (elevated liver enzymes, localized RUQ abd tenderness, tachycardia, leukopenia , and elevated lactic acid ) possible need for IV pressors , if not improves with second bolus follow up repeat labs d dimer elevated (most likely secondary to underlying covid , currently on heparin drip) case discussed with ICU , accepted admission for close monitoring and possible intubation to protect airways attempted to contact both sons to verify code status and wishes regarding plan of care and intubation possibility , no answer from family
[2021-10-19] MEDS ORDERED: propofoL 100 ML IV ONE (06:08)
--- NOTE | 2021-10-19 06:12 | CT ---
EXAMINATION TYPE: CT brain wo con DATE OF EXAM: 10/19/2021 COMPARISON: 01/31/2019 HISTORY: R/O brain bleed Weakness CT DLP: 1125.40 mGycm Automated exposure control for dose reduction was used. There is cerebral cortical atrophy. There is no mass effect or midline shift. There is no sign of int racranial hemorrhage. Calvarium is intact. The skull base is intact. IMPRESSION: Cerebral atrophy. No acute intracranial abnormality. No change compared to old exam.
[2021-10-19] MEDS ORDERED: NOREPINEPHRINE 4 MG in SODIUM CHLORIDE 0.9% 250 ML IV SCH (06:15)
[2021-10-19] MEDS: SODIUM CHLORIDE 0.9% 1,000 ML IV SCH (06:21)
[2021-10-19] MEDS ORDERED: ETOMIDATE 2 MG/ML 10 ML VIAL ONE (06:30)
[2021-10-19] MEDS ORDERED: SUCCINYLCHOLINE CHLORIDE 100 MG/5 ML SYR IV ONE (06:30)
--- NOTE | 2021-10-19 06:53 | XR ---
EXAMINATION TYPE: XR chest 1V portable DATE OF EXAM: 10/19/2021 COMPARISON: Yesterday HISTORY: Short of breath. Tube placement. TECHNIQUE: FINDINGS: Endotracheal tube is 4 cm from the arsen. There is airspace moderate infiltrate at the reinaldo g bases bilaterally. There are sternal wires. There is nasogastric tube with the tip in the gastric f undus. Trachea is midline. There is moderate arthritic change in the shoulder joints. IMPRESSION: Tubing in good position. There is bilateral lower lobe moderate pneumonia which is slight ly worse than exam yesterday
[2021-10-19] MEDS ORDERED: CISATRACURIUM 2 MG/ML 5 ML VIAL IV ONE (06:56)
[2021-10-19] MEDS ORDERED: fentaNYL (PF). 1,000 MCG in SODIUM CHLORIDE 0.9% 80 ML IV SCH (07:00)
[2021-10-19] MEDS ORDERED: CISATRACURIUM 200 MG in SODIUM CHLORIDE 0.9% 180 ML IV SCH (07:00)
[2021-10-19] MEDS ORDERED: DEXTROSE 5% IN WATER 100 ML with AMIODARONE 150 MG IV ONE (07:18)
[2021-10-19] MEDS ORDERED: AMIODARONE 360 MG in DEXTROSE 5% IN WATER 200 ML IV ONE ×2 (07:19)
[2021-10-19 07:45] VITALS: RESP 32
--- NOTE | 2021-10-19 07:45 | US ---
EXAMINATION TYPE: US liver DATE OF EXAM: 10/19/2021 COMPARISON: NONE CLINICAL HISTORY: elevated liver enzymes. EXAM MEASUREMENTS: Liver Length: 13.2 cm Gallbladder Wall: 0.3 cm CBD: 0.5 cm Right Kidney: 12.1 x 5.1 x 5.8 cm Performed in ICU on Covid patient. Pancreas: visualized portions wnl Liver: wnl Gallbladder: stones with shadowing noted, unable to prove mobility as patient is in ICU and not mobi le. Evidence for sonographic Stark's sign: no evidence of Stark's sign CBD: wnl Right Kidney: No hydronephrosis or masses seen at the inferior pole the right kidney is 3.1 x 3.4 x 3.3 cm simple appearing cyst. A smaller adjacent cysts present. IMPRESSION: 1. Cholelithiasis. 2. Inferior pole right renal cysts.
[2021-10-19] MEDS ORDERED: ARTIFICIAL TEARS-HYPROMELLOSE DROPS 15 ML BTL BOTH EYES SCH (08:00)
[2021-10-19 08:56] LABS: ABG Base Excess -13.8 mmol/L; ABG HCO3 14 mmol/L (21-25); ABG Oxygen Saturation 99.2 % (94-97); ABG PCO2 33 mmHg (35-45); ABG PH 7.23 (7.35-7.45); ABG PO2 199 mmHg (83-108); ABG TCO2 15 mmol/L (19-24); Allen Test Performed? Yes
[2021-10-19] MEDS ORDERED: EPINEPHrine 10 ML SYRINGE (0.1 MG/ML) ONE ×2 (09:00)
[2021-10-19] MEDS ORDERED: SODIUM BICARB 8.4% 50 ML SYR (1 MEQ/ML) ONE ×3 (09:00→10:46)
[2021-10-19] MEDS ORDERED: AMIODARONE 50 MG/ML 3 ML VIAL IV ONE (09:00)
[2021-10-19] MEDS ORDERED: CHLORHEXIDINE GLUCONATE 15 ML CUP MUCOUS MEM SCH (09:00)
[2021-10-19] MEDS ORDERED: DEXTROSE 5% IN WATER 50 ML BAG ONE (09:00)
[2021-10-19 09:05] LABS: Glucose,Whole Blood 153 mg/dL (75-99)
--- NOTE | 2021-10-19 09:24 | XR ---
EXAMINATION TYPE: XR chest 1V portable DATE OF EXAM: 10/19/2021 COMPARISON: 10/19/2021 HISTORY: SOB, Follow Up FINDINGS: Endotracheal tube and NG tube are in place. Right IJ central venous line with its distal tip overlyin g the SVC. No evidence for pneumothorax. No change in bibasilar opacities. Stable appearance of the cardio-mediastinal structures at this time. IMPRESSION: 1. Right IJ central venous line as noted above.
[2021-10-19 09:45] VITALS: TEMP 98.4
[2021-10-19] MEDS ORDERED: NOREPINEPHRINE 32 MG in SODIUM CHLORIDE 0.9% 218 ML IV SCH (10:00)
[2021-10-19] MEDS ORDERED: SODIUM CHLORIDE 0.9% 150 ML with VASOPRESSIN 60 UNIT IV SCH ×2 (10:00)
[2021-10-19] MEDS ORDERED: DEXTROSE 5% IN WATER 1,000 ML with SODIUM BICARB (1 MEQ/ML) 150 ML IV SCH (10:15)
[2021-10-19 10:54] LABS: ABG Base Excess -1.9 mmol/L; ABG HCO3 23 mmol/L (21-25); ABG Oxygen Saturation 99.4 % (94-97); ABG PCO2 36 mmHg (35-45); ABG PH 7.41 (7.35-7.45); ABG PO2 143 mmHg (83-108); ABG TCO2 24 mmol/L (19-24); Allen Test Performed? Yes
[2021-10-19 11:10] VITALS: BMI 21.7
[2021-10-19 11:12] LABS: HCT 38.8 % (39.0-53.0); HGB 12.6 gm/dL (13.0-17.5); MCH 32.1 pg (25.0-35.0); MCHC 32.4 g/dL (31.0-37.0); Mean Platelet Volume 9.6; RBC 3.92 m/uL (4.30-5.90); RDW 14.7 % (11.5-15.5)
--- NOTE | 2021-10-19 11:37 | P.EN ---
CODE BLUE Indication: V. fib arrest Code Course: Patient had started to V fib arrest at 9 this morning he had 9 cardioversion, multiple amps of BiCarb, multiple amps of epi, amio blus and gtt, and calcium. Essentialrly patient had be arresting intermittently for 2 hours. I was albel to reach Wilfredo and update him on his fathers events he agreed with DNR status and knew that his father was going to pass. During the phone converstaion he again required cardio version. Patient again went into V fib 2 minutes after the end of my conversation and was made comfortable and he did pass away. Assessment: V. fib arrest Disposition: Decreased Notified: Dr. Nino Nursing will notify family and Dr. Crespo. A Total of 37 minutes of critical care time was spent on the complex care of this patient.
[2021-10-19 12:20] LABS: Albumin 1.7 g/dL (3.5-5.0); Potassium 4.7 mmol/L (3.5-5.1); Total Bilirubin 1.3 mg/dL (0.2-1.3); Total Protein 3.7 g/dL (6.3-8.2)
[2021-10-19 12:24] VITALS: BP 105/65; PULSE 0
[2021-10-19 12:26] LABS: Calcium 5.4 mg/dL (8.4-10.2)
--- NOTE | 2021-10-19 12:40 | OP ---
OPERATIVE REPORT OPERATIVE REPORT: Placement of right triple-lumen catheter. PREOPERATIVE DIAGNOSIS: Acute hypoxic respiratory failure, hypotension and atrial fibrillation with rapid ventricular response. POSTOPERATIVE DIAGNOSIS: Acute hypoxic respiratory failure, hypotension and atrial fibrillation with rapid ventricular response. ANESTHESIA USED: 2 mL of 1% lidocaine. PROCEDURE DESCRIPTION: The patient was placed in supine position. The area of the right cervical region was prepared in a sterile fashion and drapes were applied. The area behind the posterior belly of the sternocleidomastoid muscle was locally anesthetized. Then using the posterior approach, the right internal jugular vein was cannulated easily. A guidewire was placed and a triple-lumen catheter was inserted over the guidewire. The guidewire was removed. Good blood flow was noted in the 3 different ports of the triple-lumen catheter. Chest x-ray showed adequate placement of the triple-lumen catheter. No evidence of any complications whatsoever. The procedure was well tolerated and no evidence of any complications. MMODL / IJN: [id number] /
--- NOTE | 2021-10-19 12:46 | P.CNPUL ---
History of Present Illness Consult date: 10/19/21 Requesting physician: Rodri Crespo Reason for consult: pneumonia Chief complaint: Shortness of breath History of present illness: This is an 81-year-old white male admitted last night from the emergency room, patient presented yesterday with a few days' history of increased shortness of breath, weakness. Patient was noted to be quite ill, and after a few hours in the ER, his condition has deteriorated. Patient was supposed to be admitted to a medical floor initially, but apparently during aircraft line assembler hours, his condition deteriorated. The a team responded to the patient early this morning, and apparently his clinical condition was getting worse. Patient was noted to have increased work of breathing his initial diagnosis was COVID-19 pneumonia and acute hypoxic respiratory failure. According to the note by the A TEAM, patient was hypotensive requiring fluid boluses and he was placed on BiPAP, noted to be tachypneic and apparently the patient had very low blood pressure. Patient received Ativan while in the ER, and at one point there was mention of an acute change in mental status. When I was notified about this patient, I recommended admission to the ICU today is that of admitting the patient to the medical floor. Patient was given 1 amp of D50 while in the ER, he was also given fluid boluses, and he was also given flumazenil 2 doses to reverse the Ativan that he received earlier. At any rate I recommended that the patient goes to the ICU, and he was on BiPAP at the time. I was notified about the patient is working hard to breathe, I recommended norepinephrine for low blood pressure I also recommended an ABG on the patient. The ABG was done on 75%, and BiPAP, showed a pO2 of 88 pCO2 of 29 pH of 7.36 with a bicarb of 16. In the meantime the patient was hypotensive requiring high dose of norepinephrine, and he was working hard to breathe. Then I recommended patient gets intubated by EVENT DESIGNER. And indeed he was intubated by EVENT DESIGNER, and follow-up ABG showed a pO2 of 199 pCO2 of 33 pH of 7.23. Shortly after I came into the ICU and attended to the patient. Reviewed his blood gases. Recommended chest x-ray after line placement and the chest x-ray showed adequate placement of the lines. Shortly after the patient had a cardiac arrest and he was coded by ACLS protocol. Patient went into V. tach and lost his pulse, patient was defibrillated multiple times, and there was return of spontaneous circulation. ABG shortly after the patient was coded twice on 100% showed a pO2 of 143 pCO2 of 36 pH of 7.41, during the code, patient was given epinephrine and he was given sodium bicarb. Please refer to the full documentation of the ACLS protocol. Patient was later given amiodarone bolus and placed on amiodarone drip. He was noted to be in at rial fibrillation with RVR. Again the patient had multiple cardiac arrests [id number], and apparently the family decided to make the patient DO NOT RESUSCITATE. Patient was later pronounced by the nurse who took care of the patient Review of Systems ROS unobtainable: due to endotracheal tube Past Medical History Past Medical History: Coronary Artery Disease (CAD), Diabetes Mellitus, Hypertension, Myocardial Infarction ([place]), Osteoarthritis (OA), Thyroid Disorder Additional Past Medical History / Comment(s): Medical noncompliance Last Myocardial Infarction Date:: 1994 History of Any Multi-Drug Resistant Organisms: None Reported Past Surgical History: Coronary Bypass/CABG, Heart Catheterization With Stent, Orthopedic Surgery Additional Past Surgical History / Comment(s): Bilateral hip replacement, CABG 25 years ago Past Anesthesia/Blood Transfusion Reactions: No Reported Reaction Date of Last Stent Placement:: 1994 Past Psychological History: No Psychological Hx Reported Smoking Status: Unknown if ever smoked Past Alcohol Use History: None Reported Additional Past Alcohol Use History / Comment(s): Patient was a smoker one pack per day for 45 years and quit in 1993. No marijuana or illicit drug use. He lives at home with his . There are 2 adult children in the home ages 42 and 50. There is also a cat in the home. Patient denies any extensive travel but does have a second home in [place] and is there on a regular basis. He denies any service. Past Drug Use History: None Reported - Past Family History Mother Additional Family Medical History / Comment(s): Mom from brain cancer. Father History Unknown: Yes Additional Family Medical History / Comment(s): Father after a fall at [facility]. Medications and Allergies Home Medications Medication Instructions Recorded Confirmed Type Glimepiride [Amaryl] 8 mg PO [id number] 07/28/15 10/18/21 History Lisinopril [Prinivil] 10 mg PO DAILY 07/28/15 10/18/21 History Metoprolol Tartrate [Lopressor] 50 mg PO BID 07/28/15 10/18/21 History Zolpidem [Ambien] 10 mg PO HS PRN 07/28/15 10/18/21 History Ergocalciferol [Vitamin D2 50,000 unit PO Q30D 07/29/15 10/18/21 History (DRISDOL)] busPIRone HCL 15 mg PO DAILY 06/06/17 10/18/21 History Nitroglycerin Sl Tabs [Nitrostat] 0.4 mg SUBLINGUAL Q5M PRN 01/15/18 10/18/21 History Acetaminophen-Codeine 300-30mg 1 tab PO DAILY PRN 10/18/21 10/18/21 History [Tylenol w/codeine #3] Albuterol Sulfate [Albuterol 2 puff PO RT-Q6H PRN 10/18/21 10/18/21 History Sulfate Hfa] Atorvastatin Calcium [Lipitor] 80 mg PO DAILY 10/18/21 10/18/21 History Clopidogrel Bisulfate [Plavix] 75 mg PO DAILY 10/18/21 10/18/21 History Furosemide [Lasix] 40 mg PO DAILY 10/18/21 10/18/21 History Allergies Allergy/AdvReac Type Severity Reaction Status Date / Time famotidine [From Pepcid] Allergy Rapid Verified 10/18/21 17:47 Heart Rate; Dyskinesia Iodinated Contrast Media Allergy Unknown Verified 10/18/21 17:47 [Iodinated Contrast Media - IV Dye] Iodine and Iodide Containing Allergy Unknown Verified 10/18/21 17:47 Produc oxycodone HCl [From Percocet] Allergy Unknown Verified 10/18/21 17:47 pravastatin sodium Allergy Unknown Verified 10/18/21 17:47 [From Pravachol] simvastatin [From Zocor] Allergy Unknown Verified 10/18/21 17:47 tramadol HCl [From Ultram] Allergy Unknown Verified 10/18/21 17:47 cefdinir [From Omnicef] AdvReac ANXIETY Verified 10/18/21 17:47 hydrocodone AdvReac AGITATION Verified 10/18/21 17:47 hydrocodone bitartrate AdvReac AGITATION Verified 10/18/21 17:47 [From Vicodin] levofloxacin [From Levaquin] AdvReac Nausea & Verified 10/18/21 17:47 Vomiting & Diarrhea Physical Exam Vitals: Vital Signs Temp Pulse Pulse Resp BP BP Pulse Ox 10/19/21 09:30 156 H 32 H 203/107 87 L 10/19/21 09:15 128 H 203/107 76 L 10/19/21 09:00 106 H 32 H 134/65 10/19/21 08:45 134 H 32 H 103/39 10/19/21 08:30 137 H 32 H 105/88 97 10/19/21 08:15 141 H 32 H 89/56 95 10/19/21 08:00 98.4 F 137 H 32 H 104/60 96 10/19/21 07:45 146 H 32 H 91/58 96 10/19/21 07:30 141 H 32 H 89/46 96 10/19/21 07:00 135 H 32 H 111/61 98 10/19/21 06:30 144 H 33 H 110/65 10/19/21 06:00 138 H 34 H 64/48 96 10/19/21 05:43 134 H 36 H 10/19/21 05:10 76/45 10/19/21 04:43 131 H 69/48 10/19/21 04:35 97.4 F L 131 H 50 H 71/45 90 L 10/19/21 03:37 48 H 83/47 93 L 10/19/21 03:30 100.6 F H 130 H 47 H 80/40 91 L 10/19/21 02:48 131 H 41 H 10/19/21 02:44 47 H 90/51 90 L 10/19/21 00:47 99.3 F 123 H 47 H 98/56 91 L 10/18/21 23:46 100.1 F H 10/18/21 23:30 114 H 38 H 85/49 94 L 10/18/21 23:21 114 H 47 H 97/63 94 L 10/18/21 22:46 51 H 97 10/18/21 21:00 47 H 99 10/18/21 19:53 99.1 F 110 H 37 H 130/70 96 10/18/21 19:10 114 H 26 H 95/57 96 10/18/21 18:48 98.6 F 115 H 43 H 114/60 94 L 10/18/21 18:30 42 H 114/60 91 L 10/18/21 18:00 33 H 114/60 88 L 10/18/21 17:30 54 H 114/60 90 L 10/18/21 17:00 108 H 36 H 114/60 98 10/18/21 16:30 112 H 26 H 114/60 98 10/18/21 16:00 30 H 114/60 98 10/18/21 15:30 35 H 114/60 99 10/18/21 15:00 102 H 28 H 126/89 92 L 10/18/21 14:54 34 H 126/89 95 10/18/21 14:52 109 H 35 H 126/89 95 10/18/21 14:43 90 L 10/18/21 14:41 98.6 F 107 H 35 H 132/115 55 L Intake and Output 10/18/21 10/19/21 10/19/21 22:59 06:59 14:59 Intake Total 1500 360.341 Output Total 1020 70 Balance 480 290.341 Intake: IV 1000 100 Sodium Chloride 0.9% 1, 100 000 ml @ 100 mls/hr IV . Q10H NICOLAS Rx#:[id number] Sodium Chloride 0.9% 1, 1000 000 ml @ 999 mls/hr IV . Q1H1M ONE Rx#:[id number] Intake, IV Titration 500 260.341 Amount Norepinephrine 4 mg In 222.919 Sodium Chloride 0.9% 250 ml @ 0.05 MCG/KG/MIN 11. 316 mls/hr IV .[id number] NICOLAS Rx#:[id number] Sodium Chloride 0.9% 500 500 ml 500 ml @ 999 mls/hr IV .Q31M ONE Rx#:[id number] propofoL 1,000 mg In 37.422 Empty Bag 1 bag @ Titrate IV .Q0M NICOLAS Rx#: [id number] Oral 0 Output: Urine 1020 70 Other: Weight 59.4 kg 59.4 kg ABP, PAP, CO, CI - Last 8 Hours Arterial Blood Pressure 139/64 Arterial Blood Pressure 173/82 Arterial Blood Pressure 34/23 Physical exam revealed 81-year-old white male intubated and mechanically ventilated. Head: Atraumatic normocephalic. HEENT: Pupils equally reactive to light, patient is sedated and paralyzed is also on Nimbex. Chest: Symmetrical chest expansion crackles at the bases. Cardiac: Distant S1 and S2, irregular irregular rhythm. 2/6 systolic murmur thought the precordium. Abdomen: Soft nontender no megaly no rebound Extremities: Dry skin, no clubbing, no edema, no cyanosis, diminished distal pulses in the feet bilaterally. Neurologic: Could not be assessed patient is sedated and paralyzed Psychiatric: Could not be assessed patient is sedated and paralyzed. Results - Laboratory Findings CBC and BMP: 10/19/21 10:51 10/19/21 04:22 ABG ABG pH 7.41 (7.35-7.45) 10/19/21 10:53 ABG pCO2 36 mmHg (35-45) 10/19/21 10:53 ABG pO2 143 mmHg (83-108) H 10/19/21 10:53 ABG O2 Saturation 99.4 % (94-97) H 10/19/21 10:53 PT/INR, D-dimer PT 11.0 sec (9.0-12.0) 10/18/21 14:52 INR 1.0 (<1.2) 10/18/21 14:52 D-Dimer 3.84 mg/L FEU (<0.60) H 10/19/21 00:04 Abnormal lab findings: Abnormal Labs 10/18/21 10/18/21 10/18/21 14:43 14:52 14:52 WBC 2.5 L RBC Hgb Hct MCV 100.3 H Plt Count 115 L Lymphocytes # 0.2 L APTT D-Dimer ABG pH ABG pCO2 ABG pO2 ABG HCO3 ABG Total CO2 ABG O2 Saturation Potassium 5.4 H Chloride Carbon Dioxide 16 L BUN 74 H Creatinine 1.67 H Glucose 136 H POC Glucose (mg/dL) Plasma Lactic Acid Jackson Calcium Magnesium 2.4 H Total Bilirubin 1.4 H AST 312 H ALT 92 H Alkaline Phosphatase 136 H Troponin I Total Protein Albumin 3.3 L Coronavirus (PCR) Detected A 10/18/21 10/18/21 10/18/21 14:52 14:52 18:18 WBC RBC Hgb Hct MCV Plt Count Lymphocytes # APTT D-Dimer ABG pH ABG pCO2 ABG pO2 ABG HCO3 ABG Total CO2 ABG O2 Saturation Potassium Chloride Carbon Dioxide BUN Creatinine Glucose POC Glucose (mg/dL) Plasma Lactic Acid Jackson 5.1 H* 2.8 H* Calcium Magnesium Total Bilirubin AST ALT Alkaline Phosphatase Troponin I 2.630 H* Total Protein Albumin Coronavirus (PCR) 10/19/21 10/19/21 10/19/21 00:04 01:09 03:04 WBC RBC Hgb Hct MCV Plt Count Lymphocytes # APTT 58.5 H D-Dimer 3.84 H ABG pH ABG pCO2 ABG pO2 ABG HCO3 ABG Total CO2 ABG O2 Saturation Potassium Chloride Carbon Dioxide BUN Creatinine Glucose POC Glucose (mg/dL) Plasma Lactic Acid Jackson 3.2 H* Calcium Magnesium Total Bilirubin AST ALT Alkaline Phosphatase Troponin I Total Protein Albumin Coronavirus (PCR) 10/19/21 10/19/21 10/19/21 03:53 04:22 04:22 WBC 3.5 L RBC 4.00 L Hgb Hct MCV Plt Count 86 L Lymphocytes # APTT D-Dimer ABG pH ABG pCO2 ABG pO2 ABG HCO3 ABG Total CO2 ABG O2 Saturation Potassium Chloride 118 H Carbon Dioxide 13 L BUN 70 H Creatinine 1.36 H Glucose POC Glucose (mg/dL) Plasma Lactic Acid Jackson 2.1 H* Calcium 6.8 L Magnesium Total Bilirubin 1.6 H AST 186 H ALT 61 H Alkaline Phosphatase Troponin I Total Protein 5.8 L Albumin 2.5 L Coronavirus (PCR) 10/19/21 10/19/21 10/19/21 04:48 05:19 05:40 WBC RBC Hgb Hct MCV Plt Count Lymphocytes # APTT D-Dimer ABG pH ABG pCO2 29 L ABG pO2 ABG HCO3 16 L ABG Total CO2 17 L ABG O2 Saturation Potassium Chloride Carbon Dioxide BUN Creatinine Glucose POC Glucose (mg/dL) 57 L 199 H Plasma Lactic Acid Jackson Calcium Magnesium Total Bilirubin AST ALT Alkaline Phosphatase Troponin I Total Protein Albumin Coronavirus (PCR) 10/19/21 10/19/21 10/19/21 08:52 09:04 10:51 WBC RBC 3.92 L Hgb 12.6 L Hct 38.8 L MCV Plt Count Lymphocytes # APTT D-Dimer ABG pH 7.23 L ABG pCO2 33 L ABG pO2 199 H ABG HCO3 14 L ABG Total CO2 15 L ABG O2 Saturation 99.2 H Potassium Chloride Carbon Dioxide BUN Creatinine Glucose POC Glucose (mg/dL) 153 H Plasma Lactic Acid Jackson Calcium Magnesium Total Bilirubin AST ALT Alkaline Phosphatase Troponin I Total Protein Albumin Coronavirus (PCR) 10/19/21 10:53 WBC RBC Hgb Hct MCV Plt Count Lymphocytes # APTT D-Dimer ABG pH ABG pCO2 ABG pO2 143 H ABG HCO3 ABG Total CO2 ABG O2 Saturation 99.4 H Potassium Chloride Carbon Dioxide BUN Creatinine Glucose POC Glucose (mg/dL) Plasma Lactic Acid Jackson Calcium Magnesium Total Bilirubin AST ALT Alkaline Phosphatase Troponin I Total Protein Albumin Coronavirus (PCR) - Diagnostic Findings Chest x-ray: image reviewed (As noted in HPI.) Assessment and Plan Assessment: Impression: Acute hypoxic respiratory failure secondary to COVID-19 pneumonia Cardiac arrest, patient had multiple episodes of cardiac arrests associated with atrial fibrillation/RVR and recurrent episodes of ventricular tachycardia and ventricular fibrillation requiring defibrillation, multiple times. Please refer to separate sheet documenting ACLS protocol Suspect sepsis, and profound hypotension with septic shock on presentation, possible ascending cholangitis as documented by the A team who attended to the patient earlier. Patient was empirically on Zosyn. Cholelithiasis as noted on ultrasound of the liver earlier today. Elevated troponin on admission, possible acute non-ST elevation myocardial infarction. Acute kidney injury secondary to acute tubular necrosis/sepsis and septic shock. Recommendation: Please refer to documentation on his cardiac arrest/ACLS protocol. Patient was made DO NOT RESUSCITATE as per family's wishes Patient was later pronounced . Time with Patient: Greater than 30
--- NOTE | 2021-10-19 12:49 | OP ---
OPERATIVE REPORT OPERATIVE REPORT: Placement of left radial arterial line. PREOPERATIVE DIAGNOSIS: Acute hypoxic respiratory failure, COVID-19 pneumonia, and atrial fibrillation with rapid ventricular response and intermittent hypotension episodes. ANESTHESIA USED: None deployed. PROCEDURE DESCRIPTION: The patient was placed in a supine position. The left wrist was prepared in a sterile fashion and drapes were applied. The left radial artery was palpated, easily cannulated. A guidewire was placed and a Cook's catheter was inserted over the guidewire. The guidewire was removed. Good blood flow, good waveform noted. No complications. Line was secured using 3.0 silk sutures. MMODL / IJN: [id number] /
[2021-10-19] MEDS ORDERED: AMIODARONE 450 MG in DEXTROSE 5% IN WATER 250 ML IV SCH ×2 (13:30)
[2021-10-19 13:39] LABS: Band Neutrophils % 8 %; Lymphocytes # (M) 0.56 k/uL (1.0-4.8); Monocytes # (M) 0.21 k/uL (0-1.0); Neutrophils % (M) 81 %; Nucleated Red Blood Cells 0 /100 WBC (0-0); Total Cells Counted 100
--- NOTE | 2021-10-19 13:39 | P.CRDCN ---
History of Present Illness Consult date: 10/19/21 History of present illness: The patient is an 81-year-old gentleman who sees Dr. Hoffmann irregularly with a past medical history significant for coronary artery disease and prior coronary artery that is grafting as well as cardiomyopathy as well as valvular heart disease and hypertension and dyslipidemia who was admitted to the intensive care unit with acute hypoxic respiratory failure. He was tested positive for COVID- 19 infection. We requested to see the patient for further evaluation off acute coronary syndrome. The patient currently is intubated and he is on mechanical ventilation and the history was taken from the chart as well as from the nurse taking care of the patient. Apparently the patient presented to the hospital with increasing shortness of breath as well as generalized weakness and fatigue. At that point the patient did not have any symptoms of chest pain or chest discomfort. Also he was not having any fever or chills. He was not experi encing any cough as well. His initial workup came in to be positive for COVID- 19 pneumonia. Subsequently the patient's case deteriorated very quickly and he developed acute hypoxic respiratory failure and also change in mental status. To protect his airway he was intubated and placed on mechanical ventilation. We consulted to see the patient because of troponin abnormalities. Troponin was checked and came in to be abnormal. Initial troponin was 2.6 and the second one was 1.9. The EKG showed sinus rhythm was sinus tachycardia. The patient when he was seen in the morning he was hemodynamically stable and he was not on any vasopressors. Subsequently the patient developed atrial fibrillation. He was hypotensive and requiring small doses of norepinephrine. Chest x-ray showed findings consistent with pneumonia. The most recent echo from 2019 revealed inverted LV function was EF between 25-30%. Past Medical History Past Medical History: Coronary Artery Disease (CAD), Diabetes Mellitus, Hypertension, Myocardial Infarction (NC), Osteoarthritis (OA), Thyroid Disorder Additional Past Medical History / Comment(s): Medical noncompliance Last Myocardial Infarction Date:: 1994 History of Any Multi-Drug Resistant Organisms: None Reported Past Surgical History: Coronary Bypass/CABG, Heart Catheterization With Stent, Orthopedic Surgery Additional Past Surgical History / Comment(s): Bilateral hip replacement, CABG 25 years ago Past Anesthesia/Blood Transfusion Reactions: No Reported Reaction Date of Last Stent Placement:: 1994 Past Psychological History: No Psychological Hx Reported Smoking Status: Unknown if ever smoked Past Alcohol Use History: None Reported Additional Past Alcohol Use History / Comment(s): Patient was a smoker one pack per day for 45 years and quit in 1993. No marijuana or illicit drug use. He lives at home with his . There are 2 adult children in the home ages 42 and 50. There is also a cat in the home. Patient denies any extensive travel but does have a second home in [place] and is there on a regular basis. He denies any service. Past Drug Use History: None Reported - Past Family History Mother Additional Family Medical History / Comment(s): Mom from brain cancer. Father History Unknown: Yes Additional Family Medical History / Comment(s): Father after a fall at jail. Medications and Allergies Home Medications Medication Instructions Recorded Confirmed Type Glimepiride [Amaryl] 8 mg PO [id number] 07/28/15 10/18/21 History Lisinopril [Prinivil] 10 mg PO DAILY 07/28/15 10/18/21 History Metoprolol Tartrate [Lopressor] 50 mg PO BID 07/28/15 10/18/21 History Zolpidem [Ambien] 10 mg PO HS PRN 07/28/15 10/18/21 History Ergocalciferol [Vitamin D2 50,000 unit PO Q30D 07/29/15 10/18/21 History (DRISDOL)] busPIRone HCL 15 mg PO DAILY 06/06/17 10/18/21 History Nitroglycerin Sl Tabs [Nitrostat] 0.4 mg SUBLINGUAL Q5M PRN 01/15/18 10/18/21 History Acetaminophen-Codeine 300-30mg 1 tab PO DAILY PRN 10/18/21 10/18/21 History [Tylenol w/codeine #3] Albuterol Sulfate [Albuterol 2 puff PO RT-Q6H PRN 10/18/21 10/18/21 History Sulfate Hfa] Atorvastatin Calcium [Lipitor] 80 mg PO DAILY 10/18/21 10/18/21 History Clopidogrel Bisulfate [Plavix] 75 mg PO DAILY 10/18/21 10/18/21 History Furosemide [Lasix] 40 mg PO DAILY 10/18/21 10/18/21 History Allergies Allergy/AdvReac Type Severity Reaction Status Date / Time famotidine [From Pepcid] Allergy Rapid Verified 10/18/21 17:47 Heart Rate; Dyskinesia Iodinated Contrast Media Allergy Unknown Verified 10/18/21 17:47 [Iodinated Contrast Media - IV Dye] Iodine and Iodide Containing Allergy Unknown Verified 10/18/21 17:47 Produc oxycodone HCl [From Percocet] Allergy Unknown Verified 10/18/21 17:47 pravastatin sodium Allergy Unknown Verified 10/18/21 17:47 [From Pravachol] simvastatin [From Zocor] Allergy Unknown Verified 10/18/21 17:47 tramadol HCl [From Ultram] Allergy Unknown Verified 10/18/21 17:47 cefdinir [From Omnicef] AdvReac ANXIETY Verified 10/18/21 17:47 hydrocodone AdvReac AGITATION Verified 10/18/21 17:47 hydrocodone bitartrate AdvReac AGITATION Verified 10/18/21 17:47 [From Vicodin] levofloxacin [From Levaquin] AdvReac Nausea & Verified 10/18/21 17:47 Vomiting & Diarrhea Physical Exam Vitals: Vital Signs Temp Pulse Pulse Resp BP BP Pulse Ox 10/19/21 11:25 0 L 32 H 81 L 10/19/21 11:20 99 32 H 55 L 10/19/21 11:15 100 32 H 52 L 10/19/21 11:10 87 32 H 10/19/21 11:05 95 10/19/21 11:00 96 55 L 10/19/21 10:55 105/65 72 L 10/19/21 10:50 126 H 32 H 105/65 10/19/21 10:45 123 H 32 H 105/65 100 10/19/21 10:40 130 H 32 H 105/65 98 10/19/21 10:35 128 H 32 H 105/65 98 10/19/21 10:30 125 H 32 H 105/65 10/19/21 10:25 141 H 32 H 105/65 10/19/21 10:20 165 H 32 H 105/65 79 L 10/19/21 10:15 165 H 32 H 105/65 10/19/21 10:10 163 H 32 H 105/65 10/19/21 10:05 163 H 32 H 105/65 10/19/21 10:00 170 H 32 H 99 10/19/21 09:55 160 H 32 H 10/19/21 09:50 163 H 32 H 203/107 86 L 10/19/21 09:45 161 H 32 H 203/107 10/19/21 09:30 156 H 32 H 203/107 87 L 10/19/21 09:15 128 H 203/107 76 L 10/19/21 09:00 106 H 32 H 134/65 10/19/21 08:45 134 H 32 H 103/39 10/19/21 08:30 137 H 32 H 105/88 97 10/19/21 08:15 141 H 32 H 89/56 95 10/19/21 08:00 98.4 F 137 H 32 H 104/60 96 10/19/21 07:45 146 H 32 H 91/58 96 10/19/21 07:30 141 H 32 H 89/46 96 10/19/21 07:00 135 H 32 H 111/61 98 10/19/21 06:30 144 H 33 H 110/65 10/19/21 06:00 138 H 34 H 64/48 96 10/19/21 05:43 134 H 36 H 10/19/21 05:10 76/45 10/19/21 04:43 131 H 69/48 10/19/21 04:35 97.4 F L 131 H 50 H 71/45 90 L 10/19/21 03:37 48 H 83/47 93 L 10/19/21 03:30 100.6 F H 130 H 47 H 80/40 91 L 10/19/21 02:48 131 H 41 H 10/19/21 02:44 47 H 90/51 90 L 10/19/21 00:47 99.3 F 123 H 47 H 98/56 91 L 10/18/21 23:46 100.1 F H 10/18/21 23:30 114 H 38 H 85/49 94 L 10/18/21 23:21 114 H 47 H 97/63 94 L 10/18/21 22:46 51 H 97 10/18/21 21:00 47 H 99 10/18/21 19:53 99.1 F 110 H 37 H 130/70 96 10/18/21 19:10 114 H 26 H 95/57 96 10/18/21 18:48 98.6 F 115 H 43 H 114/60 94 L 10/18/21 18:30 42 H 114/60 91 L 10/18/21 18:00 33 H 114/60 88 L 10/18/21 17:30 54 H 114/60 90 L 10/18/21 17:00 108 H 36 H 114/60 98 10/18/21 16:30 112 H 26 H 114/60 98 10/18/21 16:00 30 H 114/60 98 10/18/21 15:30 35 H 114/60 99 10/18/21 15:00 102 H 28 H 126/89 92 L 10/18/21 14:54 34 H 126/89 95 10/18/21 14:52 109 H 35 H 126/89 95 10/18/21 14:43 90 L 10/18/21 14:41 98.6 F 107 H 35 H 132/115 55 L Intake and Output 10/18/21 10/19/21 10/19/21 22:59 06:59 14:59 Intake Total 1500 660.341 Output Total 1020 120 Balance 480 540.341 Intake: IV 1000 400 Sodium Chloride 0.9% 1, 400 000 ml @ 100 mls/hr IV . Q10H [facility] Rx#:[id number] Sodium Chloride 0.9% 1, 1000 000 ml @ 999 mls/hr IV . Q1H1M [facility] Rx#:[id number] Intake, IV Titration 500 260.341 Amount Norepinephrine 4 mg In 222.919 Sodium Chloride 0.9% 250 ml @ 0.05 MCG/KG/MIN 11. 316 mls/hr IV .[id number] [facility] Rx#:[id number] Sodium Chloride 0.9% 500 500 ml 500 ml @ 999 mls/hr IV .Q31M [facility] Rx#:[id number] propofoL 1,000 mg In 37.422 Empty Bag 1 bag @ Titrate IV .Q0M [facility] Rx#: [id number] Oral 0 Output: Urine 1020 120 Other: Weight 59.4 kg 59.4 kg ABP, PAP, CO, CI - Last 8 Hours Arterial Blood Pressure 12 Arterial Blood Pressure 190/78 Arterial Blood Pressure 185/79 Arterial Blood Pressure 129/70 Arterial Blood Pressure 85/43 Arterial Blood Pressure 162/65 Arterial Blood Pressure 110/26 Arterial Blood Pressure 176/85 Arterial Blood Pressure 152/61 Arterial Blood Pressure 136/59 Arterial Blood Pressure 122/51 Arterial Blood Pressure 68/37 Arterial Blood Pressure 72/42 Arterial Blood Pressure 83/45 Arterial Blood Pressure 79/44 Arterial Blood Pressure 79/47 Arterial Blood Pressure 88/47 Arterial Blood Pressure 92/49 Arterial Blood Pressure 88/49 Arterial Blood Pressure 95/48 Arterial Blood Pressure 109/54 Arterial Blood Pressure 139/64 Arterial Blood Pressure 173/82 Arterial Blood Pressure 34/23 - Constitutional General appearance: no acute distress - Respiratory Respiratory: bilateral: diminished - Cardiovascular Heart sounds: normal: S1, S2 Abnormal Heart Sounds: systolic murmur Results 10/19/21 10:51 10/19/21 10:51 Cardiac Enzymes 10/18/21 10/18/21 10/19/21 Range/Units 14:52 14:52 04:22 AST 312 H 186 H (17-59) U/L Troponin I 2.630 H* (0.000-0.034) ng/mL 10/19/21 10/19/21 Range/Units 10:51 10:51 AST 149 H (17-59) U/L Troponin I 1.930 H* (0.000-0.034) ng/mL Coagulation 10/18/21 10/19/21 Range/Units 14:52 03:04 PT 11.0 (9.0-12.0) sec APTT 26.5 58.5 H (22.0-30.0) sec CBC 10/18/21 10/19/21 10/19/21 Range/Units 14:52 04:22 10:51 WBC 2.5 L 3.5 L 7.0 (3.8-10.6) k/uL RBC 4.82 4.00 L 3.92 L (4.30-5.90) m/uL Hgb 16.0 13.6 12.6 L (13.0-17.5) gm/dL Hct 48.4 39.8 38.8 L (39.0-53.0) % Plt Count 115 L 86 L (150-450) k/uL Comprehensive Metabolic Panel 10/18/21 10/19/21 10/19/21 Range/Units 14:52 04:22 10:51 Sodium 140 144 153 H (137-145) mmol/L Potassium 5.4 H 5.0 4.7 (3.5-5.1) mmol/L Chloride 106 118 H 118 H (98-107) mmol/L Carbon Dioxide 16 L 13 L 19 L (22-30) mmol/L BUN 74 H 70 H 68 H (9-20) mg/dL Creatinine 1.67 H 1.36 H 1.63 H (0.66-1.25) mg/dL Glucose 136 H 75 153 H (74-99) mg/dL Calcium 8.4 6.8 L 5.4 L* (8.4-10.2) mg/dL AST 312 H 186 H 149 H (17-59) U/L ALT 92 H 61 H 53 H (4-49) U/L Alkaline Phosphatase 136 H 78 68 (38-126) U/L Total Protein 6.7 5.8 L 3.7 L (6.3-8.2) g/dL Albumin 3.3 L 2.5 L 1.7 L (3.5-5.0) g/dL Current Medications Generic Name Dose Route Start Last Admin Trade Name Freq PRN Reason Stop Dose Admin Acetaminophen 650 mg 10/18/21 16:13 Acetaminophen Tab 325 Mg Tab PO Q6HR PRN Mild Pain or Fever > 100.5 Artificial Tears 2 drops 10/19/21 08:00 10/19/21 10:11 Artificial Tears-Hypromellose Drops 15 Ml Btl BOTH EYES 2 drops Q4HR [facility] Administration Chlorhexidine Gluconate 15 ml 10/19/21 09:00 Chlorhexidine Gluconate 15 Ml Cup MUCOUS MEM BID [facility] Heparin Sodium (Porcine) 0 unit 10/18/21 16:49 Heparin Sodium 1,000 Un/Ml (10ml Vl) IV PER PROTOCOL PRN Low PTT Protocol Heparin Sodium/Sodium Chloride 250 mls @ 7.076 mls/hr 10/18/21 17:00 10/18/21 18:29 25,000 unit/ Sodium Chloride IV 12 units/kg/hr .Q24H [facility] 7.076 mls/hr Administration Protocol 12 UNITS/KG/HR Sodium Chloride 1,000 mls @ 100 mls/hr 10/19/21 04:45 10/19/21 05:53 Saline 0.9% IV 100 mls/hr .Q10H [facility] Administration Piperacillin Sod/Tazobactam 100 mls @ 25 mls/hr 10/19/21 05:07 10/19/21 06:59 Sod 3.375 gm/ Sodium Chloride IVPB 25 mls/hr Q8H [facility] Administration Propofol 1,000 mg/ IV Solution 100 mls @ 0 mls/hr 10/19/21 06:15 10/19/21 10:10 IV 50 mcg/kg/min .Q0M [facility] 17.82 mls/hr Administration Protocol Titrate Cisatracurium Besylate 200 mg/ 200 mls @ 3.564 mls/hr 10/19/21 07:00 10/19/21 07:14 Sodium Chloride IV 1 mcg/kg/min .Q24H [facility] 3.564 mls/hr Administration Protocol 1 MCG/KG/MIN Fentanyl Citrate 1,000 mcg/ 100 mls @ 2.97 mls/hr 10/19/21 07:00 10/19/21 07 :12 Sodium Chloride IV 0.5 mcg/kg/hr .Q24H [facility] 2.97 mls/hr Administration Protocol 0.5 MCG/KG/HR Amiodarone HCl 450 mg/ 250 mls @ 16.667 mls/hr 10/19/21 13:30 Dextrose/Water IV 10/20/21 07:29 .Q15H [facility] Protocol 0.5 MG/MIN Vasopressin 60 unit/ Sodium 153 mls @ 4.59 mls/hr 10/19/21 10:00 Chloride IV .Q24H [facility] Protocol 0.03 UNITS/MIN Norepinephrine Bitartrate 32 250 mls @ 1.392 mls/hr 10/19/21 10:00 10/19/21 09:57 mg/ Sodium Chloride IV 0.9 mcg/kg/min .Q24H [facility] 25.059 mls/hr Administration Protocol 0.05 MCG/KG/MIN Sodium Bicarbonate 150 ml/ 1,150 mls @ 150 mls/hr 10/19/21 10:15 Dextrose/Water IV .Q7H40M [facility] Lorazepam 1 mg 10/19/21 01:26 10/19/21 02:05 Lorazepam 2 Mg/Ml Inj IV 1 mg Q8HR PRN Administration Anxiety Naloxone HCl 0.2 mg 10/18/21 16:13 Naloxone 0.4 Mg/Ml 1 Ml Vial IV Q2M PRN Opioid Reversal Ondansetron HCl 4 mg 10/18/21 16:13 Ondansetron 4 Mg/2 Ml Vial IVP Q8HR PRN Nausea And Vomiting Intake and Output 10/18/21 10/19/21 10/19/21 22:59 06:59 14:59 Intake Total 1500 660.341 Output Total 1020 120 Balance 480 540.341 Intake: IV 1000 400 Sodium Chloride 0.9% 1, 400 000 ml @ 100 mls/hr IV . Q10H [facility] Rx#:[id number] Sodium Chloride 0.9% 1, 1000 000 ml @ 999 mls/hr IV . Q1H1M [facility] Rx#:[id number] Intake, IV Titration 500 260.341 Amount Norepinephrine 4 mg In 222.919 Sodium Chloride 0.9% 250 ml @ 0.05 MCG/KG/MIN 11. 316 mls/hr IV .[id number] [facility] Rx#:[id number] Sodium Chloride 0.9% 500 500 ml 500 ml @ 999 mls/hr IV .Q31M [facility] Rx#:[id number] propofoL 1,000 mg In 37.422 Empty Bag 1 bag @ Titrate IV .Q0M [facility] Rx#: [id number] Oral 0 Output: Urine 1020 120 Other: Weight 59.4 kg 59.4 kg Patient Weight 10/20/21 06:59 Weight 59.4 kg 10/19/21 10:51 10/19/21 10:51 Assessment and Plan Assessment: Assessment #1 acute hypoxic respiratory failure #2 COVID-19 infection #3 paroxysmal atrial fibrillation #4 evidence of myocardial injury #5 severe CAD #6 severe cardiomyopathy #7 renal failure #8 multiple comorbid conditions Plan #1 continue IV heparin. #2 consider switching the patient to oral anticoagulation #3 add aspirin to the current medical regimen #4 consider starting the patient on amiodarone in view of the marginal blood pressure #5 consider starting the patient on beta osman once his pressure is more stable #6 follow-up with the patient
[2021-10-19 13:41] LABS: Platelet Count 84 k/uL (150-450)
[2021-10-20] MEDS ORDERED: ASPIRIN 81 MG PO SCH (09:00)
--- NOTE | 2021-10-20 19:26 | HP ---
HISTORY AND PHYSICAL DATE OF SERVICE: 10/18/2021. CHIEF COMPLAINT: Cough and shortness of breath. HISTORY OF PRESENT ILLNESS: This is another admission for this 81-year-old white male. He has had a longstanding history of poorly controlled insulin-dependent diabetes mellitus and heart disease. He has had previous myocardial infarction and has undergone a coronary artery bypass graft in the past. He has refused to take vaccines. He came to the emergency room with a several-day history of fever, shortness of breath, and chills. In the emergency room he was found to have extensive bilateral bronchial pneumonia all consistent with COVID- 19 and he was admitted. REVIEW OF SYSTEMS: Was not obtained because he was short of breath and on BiPAP as well as being lethargic. Past medical history, family history and personal and social histories reveal that he has been allergic to TRAMADOL, BUSPAR, CEPHALOSPORINS, QUINOLONES, PERCOCET, PRAVASTATIN. His medications that he has been on include lisinopril, clopidogrel, metoprolol, BuSpar, zolpidem, glimepiride, atorvastatin, vitamin D, ibuprofen, aspirin, and Lasix. He has refused to take insulin. He used to smoke but does not any longer. PHYSICAL EXAMINATION: Blood pressure is 90/( ). Pulse was 120. Respirations were 42. In general he appeared to be slender and in respiratory distress. He was dehydrated. Head, ears, eyes, nose, mouth and throat were otherwise normal. Breath sounds were diminished and there were extensive rales. The abdomen is flat, soft and nontender. Extremities: Normal. IMPRESSION: 1. COVID pneumonia. 2. Acute respiratory distress syndrome. 3. Type 2 diabetes mellitus. 4. Coronary artery disease. PLAN: 1. Bedrest. 2. IV fluids. 3. Pulmonology consult for COVID management. MMODL / IJN: [id number] /
--- NOTE | 2021-10-20 20:50 | DS ---
DISCHARGE SUMMARY DATE OF DISCHARGE: 10/19/2021 CHIEF COMPLAINT: Shortness of breath and COVID pneumonia. HISTORY OF PRESENT ILLNESS AND PHYSICAL EXAMINATION: Details of this man's history and physical can be found in the initial workup. LABORATORY STUDIES: While he is in the hospital he had laboratory studies, details of which can be found in the laboratory section of his chart. COURSE IN THE HOSPITAL: After admission he was placed on bedrest, started on intravenous fluids and was initially placed on the floor and then was transferred to the ICU. He deteriorated quickly, and on the morning of his had a cardiac arrest and was resuscitated several times, but then finally pronounced . FINAL DIAGNOSES: 1. COVID pneumonia. 2. History of hypertension. 3. History of coronary artery disease. 4. History of diabetes mellitus. 5. History of hypertension. OPERATIONS: None. CONSULTATION: Pulmonology. He is not improved. He . MMODL / ANAN: [id number] /
== END 2021-10-19 13:55 | disposition expired | DRG 871 ==
LOC: EC 14:29 → 3SCARD 16:34 → 2SICU 10-19 06:16
PROVIDERS: ADMIT Family Medicine; ATTEND Family Medicine
PROC: 5A1935Z Respiratory Ventilation, Less than 24 Consecutive Hours (ICD-10-PCS; principal; 2021-10-18)
PROC: 0BH17EZ Insertion of Endotracheal Airway into Trachea, Via Natural or Artificial Opening (ICD-10-PCS; 2021-10-18)
PROC: 5A09357 Assistance with Respiratory Ventilation, Less than 24 Consecutive Hours, Continuous Positive Airway Pressure (ICD-10-PCS; 2021-10-18)
PROC: 02HV33Z Insertion of Infusion Device into Superior Vena Cava, Percutaneous Approach (ICD-10-PCS; 2021-10-18)
PROC: 4A133B1 Monitoring of Arterial Pressure, Peripheral, Percutaneous Approach (ICD-10-PCS; 2021-10-18)
PROC: 4A133J1 Monitoring of Arterial Pulse, Peripheral, Percutaneous Approach (ICD-10-PCS; 2021-10-18)
PROC: 3E033XZ Introduction of Vasopressor into Peripheral Vein, Percutaneous Approach (ICD-10-PCS; 2021-10-18)
DX: A41.89 Other specified sepsis (principal); U07.1 COVID-19; R65.21 Severe sepsis with septic shock; J12.82 Pneumonia due to coronavirus disease 2019; N17.0 Acute kidney failure with tubular necrosis; I21.4 Non-ST elevation (NSTEMI) myocardial infarction; J80 Acute respiratory distress syndrome; J44.0 Chronic obstructive pulmonary disease with (acute) lower respiratory infection; E87.2 Acidosis; I42.9 Cardiomyopathy, unspecified; I47.2 Ventricular tachycardia; K83.09 Other cholangitis; I46.9 Cardiac arrest, cause unspecified; Z51.5 Encounter for palliative care; Z66 Do not resuscitate; I11.0 Hypertensive heart disease with heart failure; I48.0 Paroxysmal atrial fibrillation; I49.01 Ventricular fibrillation; I50.9 Heart failure, unspecified; I25.10 Atherosclerotic heart disease of native coronary artery without angina pectoris; E11.9 Type 2 diabetes mellitus without complications; R74.01 Elevation of levels of liver transaminase levels; R10.11 Right upper quadrant pain; D72.819 Decreased white blood cell count, unspecified; K80.20 Calculus of gallbladder without cholecystitis without obstruction; E78.5 Hyperlipidemia, unspecified; Z96.643 Presence of artificial hip joint, bilateral; I25.2 Old myocardial infarction; Z79.02 Long term (current) use of antithrombotics/antiplatelets; Z79.84 Long term (current) use of oral hypoglycemic drugs; Z79.890 Hormone replacement therapy; Z79.899 Other long term (current) drug therapy; Z87.891 Personal history of nicotine dependence; Z91.19 Patient's noncompliance with other medical treatment and regimen; Z95.1 Presence of aortocoronary bypass graft
CPT/HCPCS: 36415; 36600; 70450; 71045; 76705; 80053; 82805; 83605; 83735; 83880; 84484; 85025; 85027; 85379; 85610; 85730; 87635; 92950; 93005; 94002; 94660; 99291